=== PATIENT | male | born 1960 | race Caucasian/White ===

== ENCOUNTER 2023-08-13 16:16 | Inpatient (IN) ==
[2023-08-13] MEDS: SODIUM CHLORIDE 0.9% 500 ML IV STA (16:47)
[2023-08-13] MEDS: ACETAMINOPHEN 325 MG TAB PO STA (16:48)
--- NOTE | 2023-08-13 17:06 | XRay Report ---
XR chest 1V not portable CLINICAL HISTORY: Tachycardia. COMPARISON STUDY: No previous studies for comparison. FINDINGS: Lung volumes are normal. Lungs are clear. There is no pneumothorax or pleural effusion. Car diac size is normal. Mediastinal contours are normal. There is no evidence for pulmonary edema. IMPRESSION: No acute cardiopulmonary findings. ACT 112: Negative or not required by law. Electronically signed by: Josef Hernandez M.D. 08/13/2023 5:05 PM
[2023-08-13 17:38] LABS: Albumin Globulin Ratio 1.1 (0.9-2); Albumin Level 3.9 gm/dl (3.4-5.0); BUN Creatinine Ratio 13.7 (10-20); Bilirubin,Total 2.1 mg/dl (0.2-1.0); Creatinine Clr Calc Pharmacy 84.9 ml/min; Est GFR (African American) 72.3 ml/min; Est GFR (Non-African American) 62.4 ml/min; Globulin 3.7 gm/dl (2.5-4.0); Potassium 3.8 mmol/L (3.5-5.1); Total Protein 7.6 gm/dl (6.0-8.3)
[2023-08-13 17:44] LABS: Troponin I High Sensitivity 30.8 pg/ml (0-20)
[2023-08-13 17:54] LABS: INR 1.1 (0.9-1.1); Partial Thromboplastin Ratio 1.1; Partial Thromboplastin Time 29 Seconds (21-31); Prothrombin Time 11.6 Seconds (9.0-12.0)
[2023-08-13 17:55] LABS: Influenza A virus by PCR Negative (Neg); Influenza B virus by PCR Negative (Neg); RSV by PCR Negative (Neg); SARS CoV2 RNA(COVID-19) Ceph NEGATIVE (Negative)
--- NOTE | 2023-08-13 17:59 | Emergency Department Note ---
Impression & Plan Anaplasmosis, Lyme disease, Elevated troponin, Anemia, Lymphopenia, Thrombocytopenia, Elevated AST (SGOT) ED Provider Note NAME: MACK AMBROSE AGE: 63 SEX: M : 1960 ARRIVES VIA: Walk-In INFORMANT: Patient ED PROVIDER(S): Otto Carpio MD CHIEF COMPLAINT: Febrile illness, referred. PLAN: Disposition: Admit MEDICAL DECISION MAKING: The patient is a pleasant 63-year-old gentleman with a past medical history of hyperlipidemia, polyneuropathy who presents to the emergency department via walk-in accompanied by his , referred from his PCP office where he was seen for evaluation of febrile illness that has been fluctuating since Labor weekend in the setting of the patient having tick exposures approximate week or so prior to that as well as traveling to [facility] on a cruise with his and friends/family. They report that the patient is the only one on the trip to have gotten sick. He reports feeling persistently nauseated though does not vomit regularly. He reports this is affected his appetite which has been less. He denies diarrhea. He reports some mild upper respiratory congestion but is not atypical in the setting of his CPAP use. He reports a headache that comes and goes as does fevers chills and sweats. Patient reports he found ticks on his body a week or so before his trip to [facility] and had noticed a target-like rash several days later for which he took "a couple of amoxicillin" which she had but no more than this. On evaluation patient is uncomfortable but no distress, febrile to 38.9 with heart in the 100s and vital signs otherwise stable. Appears clinically dry. Has no focal neurologic deficits. Lungs are clear. Abdomen is benign. Neck is supple with range of motion. EKG without overt acute ischemia. CXR negative for acute cardiopulmonary process per my personal preliminary review/interpretation. WBC 5.2 within normal limits though with mild lymphopenia 0.73. H/H is 11.5/35.2 decreased from recent though approximate to prior range of values. Platelets are nearly low at 73 K. INR is 1.1, within normal limits. Chemistry without metabolic acidosis. Initial lactic acid 2.3 with repeat following IV fluid hydration improved to 1.2, within normal limits. Initial high-sensitivity troponin s mildly elevated at 30.8, nonspecific in the setting of the patient's suspected tickborne illness. LFTs are elevated from baseline with total bilirubin 2.1, AST 42. Procalcitonin is mildly elevated at 0.89. Anaplasma smear was positive consistent with suspected tickborne illness. Lyme screen resulted as equivocal though suspicion for Lyme and Anaplasma coinfection is high as the patient did report a target rash following his tick exposure. Repeat high-sensitivity troponin was slightly increased at 42 but again nonspecific. Upon evaluation patient did report some improvement though persistent on his headache despite treatment with APAP and Toradol. For completeness CT of the head was ordered. This was negative for acute abnormalities. Incidental subdural calcifications are seen. The patient does agree with plan for admission for further evaluation and treatment. Case was discussed with [place] Lovell hospitalist, who will evaluate the patient for admission. Triage Nursing notes reviewed and agree them. Prior/external medical records reviewed Vital Signs: reviewed Differential diagnosis: Viral syndrome, otitis, pharyngitis, pneumonia, influenza, meningitis, urinary tract infection, sepsis, bacteremia, as well as other pathologies. ER treatment provided: See below. Diagnostics interpreted by me: ECG: Sinus tachycardia, 117 bpm, no ectopy, no overt ST elevation or depression, QTc 432, QRS 74. Cardiac Monitoring: An order for continuous cardiac monitoring was placed and demonstrated Sinus tachycardia, 117 bpm, no ectopy. Laboratory studies: See below Imaging studies: See below Consultation(s): Case was discussed with KER[facility] Lovell hospitalist, who will evaluate the patient for admission. HPI: The patient is a pleasant 63-year-old gentleman with a past medical history of hyperlipidemia, polyneuropathy who presents to the emergency department via walk-in accompanied by his , referred from his PCP office where he was seen for evaluation of febrile illness that has been fluctuating since Labor weekend in the setting of the patient having tick exposures approximate week or so prior to that as well as traveling to [facility] on a cruise with his and friends/family. They report that the patient is the only one on the trip to have gotten sick. He reports feeling persistently nauseated though does not vomit regularly. He reports this is affected his appetite which has been less. He denies diarrhea. He reports some mild upper respiratory congestion but is not atypical in the setting of his CPAP use. He reports a headache that comes and goes as does fevers chills and sweats. Patient reports he found ticks on his body a week or so before his trip to [facility] and had noticed a target-like rash several days later for which he took "a couple of amoxicillin" which she had but no more than this. ROS: See above HPI for pertinent positives & negatives. A total of 10 systems reviewed and were otherwise negative. VITALS:See Below PHYSICAL EXAMINATION: GENERAL: Awake, alert, fatigued-appearing, in no distress HENT: Normocephalic, atraumatic. Oropharynx with dry mucous membranes and otherwise unremarkable. EYES: Normal conjunctiva. Sclera non-icteric. EOMI. No nystamgus. PEARRL. NECK: Supple. No nuchal rigidity. FROM. No JVD. RESPIRATORY: Clear to auscultation. CARDIAC: Tachycardic rate, normal rhythm. Extremities warm and well perfused. Pulses equal. ABDOMEN: Soft, non-distended. No tenderness to palpation. No rebound or guarding. No masses. MUSCULOSKELETAL: Chest examination reveals no tenderness. The back is symmetrical on inspection without obvious abnormality. There is no CVA tenderness to palpation. No joint edema. LOWER EXTREMITIES: Calves are equal size bilaterally and non-tender. No edema. No discoloration. NEURO: Normal sensorium. No sensory or motor deficits noted. Intact finger- nose. 5/5 strength and SILT x 4 extremities. SKIN: No rash or jaundice noted. Otto Carpio MD Past Med/Surg History Problem List (Updated 08/13/23 @ 23:01 by Otto Carpio MD) Elevated AST (SGOT) (Acute) Thrombocytopenia (Acute) Lymphopenia (Acute) Anemia (Acute) Elevated troponin (Acute) Elevated troponin Lyme disease (Acute) Anaplasmosis (Acute) Class 2 obesity due to excess calories with body mass index (BMI) of 37.0 to 37.9 in adult Severe obstructive sleep apnea Nocturnal hypoxemia Chondrocalcinosis of knee Tendinitis of both rotator cuffs Left knee DJD Allergic rhinitis (Acute) Anemia (Chronic) Degenerative arthritis of lumbar spine (Acute) Depression (Acute) Hyperlipidemia (Chronic) Prediabetes (Acute) Periodic limb movement disorder (Chronic) Polyneuropathy (Acute) Sacral radiculopathy (Acute) Tubular adenoma of colon (Acute) Medical History Class 2 obesity with body mass index (BMI) of 36.0 to 36.9 in adult Severe obstructive sleep apnea Chondrocalcinosis of knee Left knee DJD Surgical History S/P tonsillectomy H/O: knee surgery S/P UPPP (uvulopalatopharyngoplasty) Family History Mother Myocardial infarction Grandfather (Maternal) Myocardial infarction Other Cirrhosis Coronary heart disease Depression Diabetes Denies family history of Ovarian cancer Prostate cancer Breast cancer Colorectal cancer Social History Smoking Status: Never smoker Second Hand Exposure: No; Do You Dip or Chew Tobacco: No; Hx Alcohol Use: No Hx Substance Use: No Preferred Language: German Communication Ability: Effective Science Instructor Required: No marital status: Current Living Situation: Spouse current occupational status: retired current occupation: teacher Other Information That Helps Us Care for You: No Feels Safe at Home: Yes Safety Concerns: Feels Safe At This Time Diet: regular caffeine: Yes Dental Care, Regularly: Yes Physical Activity Frequency: 1-2 Times per Week Seatbelt Use: always Sunscreen Use: Yes Assistive Devices: None Allergies Allergies Allergy/AdvReac Type Severity Reaction Status Date / Time Latex, Natural Rubber AdvReac red, Verified 08/13/23 15:31 swollen lip Home Meds Home Medications Medication Instructions Recorded Confirmed ferrous sulfate 325 mg (65 mg 325 mg PO DAILY 10/08/18 08/13/23 iron) tablet Previous Rx's Medication Instructions Recorded meloxicam 15 mg tablet (Mobic) 15 mg PO DAILY #30 tabs 07/11/20 ropinirole 1 mg tablet See Rx Instructions .Route 08/16/22 .COMPLEX #270 tabs atorvastatin 20 mg tablet See Rx Instructions .Route 11/06/22 .COMPLEX #90 tabs citalopram 20 mg tablet 20 mg PO DAILY #90 tabs 05/08/23 tirzepatide (weight loss) 2.5 2.5 mg (0.5 mL) subcut Q7D 90 days 06/23/23 mg/0.5 mL subcutaneous pen #6.5 mL injector (Zepbound) tirzepatide (weight loss) 5 mg/0.5 5 mg (0.5 mL) subcut Q7D 90 days 08/01/23 mL subcutaneous pen injector #6.5 mL (Zepbound) Results & Data (ED) Vital Signs Vital Signs - 24 hr 08/13/23 16:20 08/13/23 17:34 08/13/23 17:49 Temperature 38.6 C H Temperature Source Oral Pulse Rate 123 H 104 H Pulse Rate [Left Finger] 110 H Pulse Rhythm [Left Finger] Regular Pulse Strength [Left Finger] Normal Respiratory Rate 16 20 Respiratory Effort / Characteristics Non-Labored Spontaneous Non-Labored Spontaneous Respiratory Depth Normal Normal Respiratory Pattern Regular Blood Pressure 130/79 Blood Pressure [Left Arm] 111/79 Blood Pressure Mean 96 Blood Pressure Mean [Left Arm] 89 Blood Pressure Position [Left Arm] Lying Pulse Oximetry 95 95 Oxygen Delivery Method Room Air Room Air Sepsis Recent Fever Within 48 Hours Yes Sepsis New/Unexplained Change in Mental Status No Sepsis Action Taken by Nursing No Action Required 08/13/23 18:33 Temperature 36.9 C Temperature Source Oral Pulse Rate Pulse Rate [Left Finger] Pulse Rhythm [Left Finger] Pulse Strength [Left Finger] Respiratory Rate Respiratory Effort / Characteristics Respiratory Depth Respiratory Pattern Blood Pressure Blood Pressure [Left Arm] Blood Pressure Mean Blood Pressure Mean [Left Arm] Blood Pressure Position [Left Arm] Pulse Oximetry Oxygen Delivery Method Sepsis Recent Fever Within 48 Hours Sepsis New/Unexplained Change in Mental Status Sepsis Action Taken by Nursing Laboratory Data Attestation: I reviewed the patient's lab results. 08/13/23 16:32 08/13/23 16:32 Lab Results 08/13/23 08/13/23 08/13/23 Range/Units 16:30 16:32 16:32 WBC 5.24 (4.8-10.8) K/ul RBC 3.91 L (4.70-6.10) M/uL Hgb 11.5 L (14.0-18.0) g/dl Hct 35.2 L (42.0-52.0) % MCV 90.0 (80.0-100.0) fL MCH 29.4 (25.0-34.0) pg MCHC 32.7 (32.0-36.0) g/dL RDW Std Deviation 45.0 (36.4-46.3) fL RDW Coeff of Armando 13.7 (11.5-14.5) % Plt Count 73 L (130-400) K/uL MPV 10.2 (9.4-12.4) fL Neutrophils % (Manual) 60 % Lymphocytes % (Manual) 14 % Reactive Lymphs % (Man) 19 % Monocytes % (Manual) 7 % Neutrophils # (Manual) 3.14 (1.40-6.50) K/uL Total Absolute Neuts 3.14 (1.4-6.5) K/uL Lymphocytes # (Manual) 0.73 L (1.2-3.4) K/uL Reactive Lymphs # 1.00 K/uL Total Abs Lymphocytes 1.73 (1.2-3.4) K/uL Monocytes # (Manual) 0.37 (0.11-0.59) K/uL Dohle Bodies 1+ Platelet Estimate Decreased L (Normal) PT 11.6 (9.0-12.0) Seconds INR 1.1 (0.9-1.1) APTT 29 (21-31) Seconds PTT Ratio 1.1 Sodium 135 L (136-145) mmol/L Potassium 3.8 (3.5-5.1) mmol/L Chloride 101 (98-107) mmol/L Carbon Dioxide 26 (21-32) mmol/L Anion Gap 8 (3-11) BUN 17 (6-23) mg/dl Creatinine 1.24 (0.6-1.4) mg/dl Est Cr Clr Drug Dosing 84.9 ml/min Est GFR ( Amer) 72.3 ml/min Est GFR (Non-Af Amer) 62.4 ml/min BUN/Creatinine Ratio 13.7 (10-20) Glucose 200 H (70-99(Fasting)) mg/dl Lactate 2.3 H* (0.4-2.0) mmol/L Calcium 9.0 (8.6-10.3) mg/dl Total Bilirubin 2.1 H (0.2-1.0) mg/dl AST 42 H (13-39) U/L ALT 30 (7-52) U/L Alkaline Phosphatase 137 H (34-104) U/L Troponin I High Sens 30.8 H (0-20) pg/ml Total Protein 7.6 (6.0-8.3) gm/dl Albumin 3.9 (3.4-5.0) gm/dl Globulin 3.7 (2.5-4.0) gm/dl Albumin/Globulin Ratio 1.1 (0.9-2) Procalcitonin 0.89 H (0-0.5) ng/ml Anaplasma Smear See Comment A Babesia Smear See Comment Lyme Disease Screen Cancelled Equivocal H Lyme Disease IgG Ab Positive H (Negative) Lyme Disease IgM Ab Negative (Negative) SARS-CoV-2 (PCR) NEGATIVE (Negative) Influenza Type A (PCR) Negative (Neg) Influenza Type B (PCR) Negative (Neg) RSV (RT-PCR) Negative (Neg) 08/13/23 08/13/23 Range/Units 18:25 18:25 WBC (4.8-10.8) K/ul RBC (4.70-6.10) M/uL Hgb (14.0-18.0) g/dl Hct (42.0-52.0) % MCV (80.0-100.0) fL MCH (25.0-34.0) pg MCHC (32.0-36.0) g/dL RDW Std Deviation (36.4-46.3) fL RDW Coeff of Armando (11.5-14.5) % Plt Count (130-400) K/uL MPV (9.4-12.4) fL Neutrophils % (Manual) % Lymphocytes % (Manual) % Reactive Lymphs % (Man) % Monocytes % (Manual) % Neutrophils # (Manual) (1.40-6.50) K/uL Total Absolute Neuts (1.4-6.5) K/uL Lymphocytes # (Manual) (1.2-3.4) K/uL Reactive Lymphs # K/uL Total Abs Lymphocytes (1.2-3.4) K/uL Monocytes # (Manual) (0.11-0.59) K/uL Dohle Bodies Platelet Estimate (Normal) PT (9.0-12.0) Seconds INR (0.9-1.1) APTT (21-31) Seconds PTT Ratio Sodium (136-145) mmol/L Potassium (3.5-5.1) mmol/L Chloride (98-107) mmol/L Carbon Dioxide (21-32) mmol/L Anion Gap (3-11) BUN (6-23) mg/dl Creatinine (0.6-1.4) mg/dl Est Cr Clr Drug Dosing ml/min Est GFR ( Amer) ml/min Est GFR (Non-Af Amer) ml/min BUN/Creatinine Ratio (10-20) Glucose (70-99(Fasting)) mg/dl Lactate Cancelled 1.2 (0.4-2.0) mmol/L Calcium (8.6-10.3) mg/dl Total Bilirubin (0.2-1.0) mg/dl AST (13-39) U/L ALT (7-52) U/L Alkaline Phosphatase (34-104) U/L Troponin I High Sens 42.1 H D (0-20) pg/ml Total Protein (6.0-8.3) gm/dl Albumin (3.4-5.0) gm/dl Globulin (2.5-4.0) gm/dl Albumin/Globulin Ratio (0.9-2) Procalcitonin (0-0.5) ng/ml Anaplasma Smear Babesia Smear Lyme Disease Screen Lyme Disease IgG Ab (Negative) Lyme Disease IgM Ab (Negative) SARS-CoV-2 (PCR) (Negative) Influenza Type A (PCR) (Neg) Influenza Type B (PCR) (Neg) RSV (RT-PCR) (Neg) Administered Medications Lactated Ringer's (Lr) 1,000 mls @ 125 mls/hr IV .Q8H RICK Stop: 08/14/23 12:14 Last Admin: 08/13/23 20:25 Dose: 125 mls/hr Documented By: TUAN Discontinued Medications Acetaminophen (Acetaminophen 325 Mg Tab) 650 mg PO NOW STA Stop: 08/13/23 16:30 Last Admin: 08/13/23 16:48 Dose: 650 mg Documented By: DANDY Acetaminophen (Acetaminophen 500 Mg Tab) 1,000 mg PO Q8H PRN PRN Reason: Pain or Fever Stop: 09/12/23 20:44 Last Admin: 08/13/23 20:56 Dose: 1,000 mg Documented By: TUAN Dexamethasone Sodium Phosphate (DexamethasonePf 10 Mg/Ml Vial) 10 mg IV NOW ONE Stop: 08/13/23 18:49 Last Admin: 08/13/23 19:09 Dose: 10 mg Documented By: JADIEL Doxycycline Hyclate (Doxycycline Hyclate 100 Mg Cap) 100 mg PO NOW STA Stop: 08/13/23 18:49 Last Admin: 08/13/23 19:09 Dose: 100 mg Documented By: JADIEL Sodium Chloride (Nss) 500 mls @ 999 mls/hr IV .Q31M STA Stop: 08/13/23 16:56 Last Infusion: 08/13/23 17:18 Dose: Infused Documented By: Admin: 08/13/23 16:47 Dose: 999 mls/hr Documented By: DANDY Sodium Chloride (Nss) 1,000 mls @ 999 mls/hr IV .Q1H1M ONE Stop: 08/13/23 18:39 Last Infusion: 08/13/23 20:17 Dose: Infused Documented By: Admin: 08/13/23 18:20 Dose: 999 mls/hr Documented By: JADIEL Ceftriaxone Sodium (Rocephin) 2,000 mg in 50 mls @ 100 mls/hr IV NOW STA Stop: 08/13/23 19:17 Last Infusion: 08/13/23 20:17 Dose: Infused Documented By: Admin: 08/13/23 19:09 Dose: 100 mls/hr Documented By: JADIEL Ketorolac Tromethamine (Ketorolac Tromethamine 15 Mg/Ml Vial) 15 mg IV NOW STA Stop: 08/13/23 18:21 Last Admin: 08/13/23 18:33 Dose: 15 mg Documented By: JADIEL Imaging Data Radiologist's Impression: Chest X-Ray 08/13/23 16:25 XR chest 1V not portable CLINICAL HISTORY: Tachycardia. COMPARISON STUDY: No previous studies for comparison. FINDINGS: Lung volumes are normal. Lungs are clear. There is no pneumothorax or pleural effusion. Cardiac size is normal. Mediastinal contours are normal. There is no evidence for pulmonary edema. IMPRESSION: No acute cardiopulmonary findings. ACT 112: Negative or not required by law. Electronically signed by: Josef Hernandez M.D. 08/13/2023 5:[address] 08/13/23 19:27 Exam(s): CT HEAD Without Contrast EXAM: CT Head Without Intravenous Contrast CLINICAL HISTORY: Reason for exam: Headache, anaplasma. TECHNIQUE: Axial computed tomography images of the head/brain without intravenous contrast. CTDI is 36.05 mGy and DLP is 624.41 mGy-cm. Automated exposure control was utilized for the study. A dose lowering technique was utilized adhering to the principles of ALARA. COMPARISON: None. FINDINGS: Brain: No mass effect or acute infarct. No acute hemorrhage. No abnormal density in the brain parenchyma. No significant atrophy or chronic white matter disease. Ventricles: No hydrocephalus or midline shift. Bones/joints: No skull fracture. Soft tissues: No scalp hematoma. Visualized Sinuses: Clear. Mastoid air cells: No mastoid effusion. IMPRESSION: 1. No acute intracranial abnormality. Electronically signed by: Shani Spann M.D. 08/13/23 20:26 PM Discharge Plan Visit Data Chief Complaint: Referred by Doctor Stated Complaint: TICK BORNE ILLNESS ED Provider: Otto Carpio Discharge Problem: Anaplasmosis, Lyme disease, Elevated troponin, Anemia, Lymphopenia, Thrombocytopenia, Elevated AST (SGOT) Patient Disposition: Admitted As Inpatient Discharge Instructions Interventions: ED Discharge Assessment Last Done: 08/13/23 22:25 Discharge Problem: Anemia Qualifiers: Anemia type: unspecified type Qualified Code(s): D64.9 - Anemia, unspecified
[2023-08-13 18:07] LABS: Procalcitonin 0.89 ng/ml (0-0.5)
[2023-08-13 18:11] LABS: ALC (manual) 1.73 K/uL (1.2-3.4); ANC (manual) 3.14 K/uL (1.4-6.5); Dohle Bodies 1+; Hematocrit (blood only) 35.2 % (42.0-52.0); Hemoglobin 11.5 g/dl (14.0-18.0); Lymphocytes # (manual) 0.73 K/uL (1.2-3.4); Lymphocytes % (manual) 14 %; Mean Corpuscular Hemoglobin 29.4 pg (25.0-34.0); Mean Corpuscular Hgb Conc 32.7 g/dL (32.0-36.0); Mean Platelet Volume 10.2 fL (9.4-12.4); Monocytes # (manual) 0.37 K/uL (0.11-0.59); Monocytes % (manual) 7 %; Neutrophils # (manual) 3.14 K/uL (1.40-6.50); Neutrophils % (manual) 60 %; Platelet Count 73 K/uL (130-400); Platelet Estimate Decreased (Normal); RDW Coefficient of Variation 13.7 % (11.5-14.5); Reactive Lymphocytes % (manual) 19 %; Red Blood Count 3.91 M/uL (4.70-6.10); White Blood Count 5.24 K/ul (4.8-10.8)
[2023-08-13] MEDS: SODIUM CHLORIDE 0.9% 1,000 ML IV ONE (18:20)
[2023-08-13 18:33] LABS: Lyme Screen Rflx Confirmation Equivocal (Negative)
[2023-08-13] MEDS: KETOROLAC TROMETHAMINE 15 MG/ML VIAL IV STA (18:33)
[2023-08-13 19:07] LABS: Lyme Ab IgG 2nd Tier Confirm Positive (Negative)
[2023-08-13 19:08] LABS: Lyme Ab IgM 2nd Tier Confirm Negative (Negative)
[2023-08-13] MEDS: dexAMETHasone**PF** 10 MG/ML VIAL IV ONE (19:09)
[2023-08-13] MEDS: DOXYCYCLINE HYCLATE 100 MG CAP PO STA (19:09)
[2023-08-13] MEDS: cefTRIAXone SODIUM 2,000 MG/50 ML BAG IV STA (19:09)
[2023-08-13] MEDS ORDERED: ONDANSETRON INJ 2 MG/ML 2 ML VIAL IV PRN (20:05)
[2023-08-13] MEDS: LACTATED RINGER'S 1,000 ML IV SCH (20:25)
--- NOTE | 2023-08-13 20:27 | CT Scan Report ---
Exam(s): CT HEAD Without Contrast EXAM: CT Head Without Intravenous Contrast CLINICAL HISTORY: Reason for exam: Headache, anaplasma. TECHNIQUE: Axial computed tomography images of the head/brain without intravenous contrast. CTDI is 36.05 mGy and DLP is 624.41 mGy-cm. Automated exposure control was utilized for the study. A dose lowering technique was utilized adhering to the principles of ALARA. COMPARISON: None. FINDINGS: Brain: No mass effect or acute infarct. No acute hemorrhage. No abnormal density in the brain parenchyma. No significant atrophy or chronic white matter disease. Ventricles: No hydrocephalus or midline shift. Bones/joints: No skull fracture. Soft tissues: No scalp hematoma. Visualized Sinuses: Clear. Mastoid air cells: No mastoid effusion. IMPRESSION: 1. No acute intracranial abnormality. Electronically signed by: Shani Spann M.D. 08/13/23 20:26 PM
--- NOTE | 2023-08-13 20:28 | History & Physical Report ---
Date of Service August 13, 2023 Assessment & Plan (1) Anaplasmosis: (2) Lyme disease: (3) Severe obstructive sleep apnea: (4) Anemia: (5) Depression: (6) Hyperlipidemia: (7) Prediabetes: (8) Elevated troponin: Plan 63 yo male PMHx DILCIA on CPAP, anemia, HLD, prediabetes, polyneuropathy, depression with history of tick exposure admitted with intermittent chills/nightsweats/headaches since . #Anaplasmosis/Lyme Labs consistent with anaplasmosis, lyme testing equivocal f/u remaining tick borne labs Treat with doxycycline 100mg BID for total of 10 days, first dose given in ER supportive care otherwise Avoid NSAIDs in setting of thrombocytopenia #Elevated Troponin Tachycardic on admission, suspect mild demand ischemia No chest pain or SOB Repeat trop ordered for am #Anemia Chronic, may be slightly worse in setting of anaplasmosis infection Continue iron supplementation #DILCIA on CPAP, severe CPAP qHS, pt will use home machine #HLD continue statin #Prediabetes Last A1c 6.4 tirzepatide held FENGI: heart healthy Code status: full DVT prophylaxis: encourage ambulation Isolation: none Disposition: med/tele History of Present Illness Primary Care Provider: Kirk Coles, DO 63 yo male PMHx DILCIA on CPAP, anemia, HLD, prediabetes, polyneuropathy, depression with history of tick exposure admitted with intermittent chills/nightsweats/headaches since . Approximately one week prior to pt discovered ticks on his body, one on lower R abdomen. Noticed a target-like rash and took amoxicillin that he had on hand. Has had intermittent chills, night sweats, and headache since that time. Also reports nausea that has limited his PO intake. Over the last week, these symptoms have been progressively worsening and he presented to the ED today. At the time of admission reports mild nausea, denies HORTON, CP, SOB, V/D, abdominal pain ED course: Febrile to 38.9, tachycardic Labs revealed anemia, thrombocytopenia, Troponin of 30.8(42.1 on repeat), Lactate 2.1(1.2 on repeat, Tbili 2.1, AST 42, Alk [id number] Lyme screen equivocal, peripheral smear + for neutrophil cytoplasmic inclusion bodies Received 1.5L NSS, Toradol, Tylenol, Dexamethasone, CTX, and Doxy Allergies Allergy/AdvReac Type Severity Reaction Status Date / Time Latex, Natural Rubber AdvReac red, Verified 08/13/23 15:31 swollen lip Home Medications Medication Instructions Recorded Confirmed Type ferrous sulfate 325 mg (65 mg 325 mg PO DAILY 10/08/18 08/13/23 History iron) tablet meloxicam 15 mg tablet (Mobic) 15 mg PO DAILY #30 tabs 07/11/20 08/13/23 Rx ropinirole 1 mg tablet See Rx Instructions .Route 08/16/22 08/13/23 Rx .COMPLEX #270 tabs atorvastatin 20 mg tablet See Rx Instructions .Route 11/06/22 08/13/23 Rx .COMPLEX #90 tabs citalopram 20 mg tablet 20 mg PO DAILY #90 tabs 05/08/23 08/13/23 Rx tirzepatide (weight loss) 2.5 2.5 mg (0.5 mL) subcut Q7D 90 days 06/23/23 08/13/23 Rx mg/0.5 mL subcutaneous pen #6.5 mL injector (Zepbound) tirzepatide (weight loss) 5 mg/0.5 5 mg (0.5 mL) subcut Q7D 90 days 08/01/23 08/13/23 Rx mL subcutaneous pen injector #6.5 mL (Zepbound) Past Med/Surg History Problem List (Updated 08/13/23 @ 23:01 by Otto Carpio MD) Elevated AST (SGOT) (Acute) Thrombocytopenia (Acute) Lymphopenia (Acute) Anemia (Acute) Elevated troponin (Acute) Elevated troponin Lyme disease (Acute) Anaplasmosis (Acute) Class 2 obesity due to excess calories with body mass index (BMI) of 37.0 to 37.9 in adult Severe obstructive sleep apnea Nocturnal hypoxemia Chondrocalcinosis of knee Tendinitis of both rotator cuffs Left knee DJD Allergic rhinitis (Acute) Anemia (Chronic) Degenerative arthritis of lumbar spine (Acute) Depression (Acute) Hyperlipidemia (Chronic) Prediabetes (Acute) Periodic limb movement disorder (Chronic) Polyneuropathy (Acute) Sacral radiculopathy (Acute) Tubular adenoma of colon (Acute) Medical History Class 2 obesity with body mass index (BMI) of 36.0 to 36.9 in adult Severe obstructive sleep apnea Chondrocalcinosis of knee Left knee DJD Surgical History S/P tonsillectomy H/O: knee surgery S/P UPPP (uvulopalatopharyngoplasty) Family History Mother Myocardial infarction Grandfather (Maternal) Myocardial infarction Other Cirrhosis Coronary heart disease Depression Diabetes Denies family history of Ovarian cancer Prostate cancer Breast cancer Colorectal cancer Social History Smoking Status: Never smoker Second Hand Exposure: No; Do You Dip or Chew Tobacco: No; Hx Alcohol Use: No Hx Substance Use: No Preferred Language: Latvian Communication Ability: Effective Pin Puller Required: No marital status: Current Living Situation: Spouse current occupational status: retired current occupation: teacher Other Information That Helps Us Care for You: No Feels Safe at Home: Yes Safety Concerns: Feels Safe At This Time Diet: regular caffeine: Yes Dental Care, Regularly: Yes Physical Activity Frequency: 1-2 Times per Week Seatbelt Use: always Sunscreen Use: Yes Assistive Devices: CPAP Review of Systems Review of Systems: reviewed, per HPI Physical Exam Physical Exam: Constitutional: [well-appearing, no acute distress] HEENT: [NCAT, no conjunctival injection] CV: [regular rhythm, no murmur appreciated, extremities well-perfused, no LE edema] Resp: [CTABL, no wheezes/rales/rhonchi appreciated, no increased work of breathing] GI: [soft, nondistended, nontender, BS normoactive] MSK: [no gross deformities appreciated] Skin: [warm, dry, no rash appreciated] Neuro: [alert, oriented, no focal neurologic deficit appreciated] Results & Data Results & Data Vital Signs (Past 12 Hours) Vital Signs Temp Pulse Pulse Resp BP BP Pulse Ox 08/13/23 18:33 36.9 C 08/13/23 17:49 104 H 08/13/23 17:34 110 H 20 111/79 95 08/13/23 16:20 38.6 C H 123 H 16 130/79 95 O2 Del Method 08/13/23 18:33 08/13/23 17:49 08/13/23 17:34 Room Air 08/13/23 16:20 Room Air Supervising Physician Co-Signing Physician Notes Attending addendum: I have physically seen this patient, have supervised the medical residents activities, and agree with the H&P unless as otherwise noted. Assessment and Plan: Tickborne illnesses- Anaplasmosis smear positive Babesiosis smear negative Lyme IgG positive with IgM negative Received ceftriaxone 2 g IV and doxycycline 100 mg IV from the ED along with dexamethasone 10 mg IV Status post 1500 mL of normal saline bolus from the ED, with no further IV fluids needed Admit on doxycycline 100 mg IV twice daily AST mildly elevated at 42 Thrombocytopenia, with platelets at 73, follow serially Elevated troponin- Troponin initially 30.8 with follow-up 42.1. Still likely supply/demand mismatch The patient will be admitted to telemetry for serial cardiac enzymes, serial EKG's, cardiac rhythm monitoring and a 2-D echocardiogram with Dopplers. Avoid any further NSAIDs, as patient did receive Toradol 15 mg IV Hyperglycemia/history of prediabetes- Most recent hemoglobin A1c 6.4 Hold tirzepatide 5 Placed on Accu-Cheks with NovoLog SSI Remaining orders and notations as noted Resident Activity Tracking Resident Involvement: Resident Care Provided Care Provided: Adult Hospital Medicine
[2023-08-13] MEDS: ACETAMINOPHEN 500 MG TAB PO PRN (20:56)
[2023-08-13] MEDS ORDERED: POLYETHYLENE (MIRALAX) 17 GM PACK PO PRN (22:26)
[2023-08-13] MEDS ORDERED: ALUMINUM/MAGNESIUM SUSP 30 ML UDC PO PRN (22:26)
[2023-08-13] MEDS ORDERED: MAGNESIUM HYDROXIDE SUSP 30 ML UDC PO PRN (22:26)
[2023-08-13] MEDS: ATORVASTATIN 20 MG TAB PO SCH (23:51)
[2023-08-13] MEDS: rOPINIRole HCL 2 MG TABLET PO ONE (23:51)
[2023-08-14 04:21] LABS: Hematocrit (blood only) 30.1 % (42.0-52.0); Mean Corpuscular Hemoglobin 29.9 pg (25.0-34.0); Mean Corpuscular Hgb Conc 33.2 g/dL (32.0-36.0); Mean Corpuscular Volume 89.9 fL (80.0-100.0); Mean Platelet Volume 10.1 fL (9.4-12.4); Platelet Count 65 K/uL (130-400); RDW Coefficient of Variation 13.7 % (11.5-14.5); RDW Standard Deviation 45.2 fL (36.4-46.3); Red Blood Count 3.35 M/uL (4.70-6.10); White Blood Count 6.06 K/ul (4.8-10.8)
[2023-08-14 04:32] LABS: Albumin Level 3.4 gm/dl (3.4-5.0); BUN Creatinine Ratio 14.4 (10-20); Bilirubin,Total 1.2 mg/dl (0.2-1.0); Calcium 8.6 mg/dl (8.6-10.3); Creatinine Clr Calc Pharmacy 94.8 ml/min; Est GFR (African American) 82.6 ml/min; Est GFR (Non-African American) 71.3 ml/min; Globulin 3.3 gm/dl (2.5-4.0); Potassium 4.3 mmol/L (3.5-5.1); Total Protein 6.7 gm/dl (6.0-8.3)
[2023-08-14 04:52] LABS: Dohle Bodies 1+
[2023-08-14 04:55] LABS: Appearance Urine Clear (Clear); Bilirubin Urine Negative (Negative); Blood Urine Negative (Negative); Color Urine Yellow; Glucose Urine UA Trace (Negative); Ketones Urine Negative (Negative); Leukocyte Esterase Urine Negative (Negative); Nitrite Urine Negative (Negative); Protein Urine Negative (Negative); Specific Gravity Urine 1.009 (1.000-1.030); Urobilinogen Urine Negative (Negative)
[2023-08-14 04:55] LABS: Basophils # (manual) 0.06 K/uL (0-0.2); Basophils % (manual) 1 %; Lymphocytes # (manual) 0.91 K/uL (1.2-3.4); Lymphocytes % (manual) 15 %; Monocytes # (manual) 0.12 K/uL (0.11-0.59); Monocytes % (manual) 2 %; Neutrophils # (manual) 4.18 K/uL (1.40-6.50); Neutrophils % (manual) 69 %; Reactive Lymphocytes # (manual) 0.79 K/uL; Reactive Lymphocytes % (manual) 13 %
[2023-08-14 05:08] LABS: Troponin I High Sensitivity 19.5 pg/ml (0-20)
[2023-08-14] MEDS: FERROUS SULFATE 325 MG TAB PO SCH (09:15)
[2023-08-14] MEDS: CITALOPRAM 20 MG TAB PO SCH (09:15)
[2023-08-14] MEDS: DOXYCYCLINE HYCLATE 100 MG in DEXTROSE 5% MINI-B 100 ML IV SCH (09:16)
[2023-08-14 09:30] LABS: INR 1.1 (0.9-1.1); Prothrombin Time 11.7 Seconds (9.0-12.0)
--- NOTE | 2023-08-14 11:21 | Hospitalist Progress Note ---
Date of Service August 14, 2023 Assessment & Plan (1) Anaplasmosis: Plan: Patient reported to have noticed tick on lower right abdomen in the 3rd week of July. Upon removal, he noted target like rash and took amoxicillin x 2 doses. Since then, he has experienced night sweats, nausea, chills, fevers, and headaches. -anaplasma smear positive 08/13/2023 -Awaiting A phagocytophilum DNA -patient placed on doxycycline 100mg twice daily x 10 days -IVF of LR completed 08/13. Patient tolerating oral intake and appetite resumed. -Tylenol 650mg q 4H prn for fevers and pain -Ondansetron 4mg IV Q4H prn for nausea -Reviewed inflammatory markers from 08/13: CRP 12.26, ESR 53, procalcitonin increased from 0.89 to 4.48. -will continue to trend -reviewed CMP from 08/13 - total bili elevation at 1.2. Alk phos elevation at 121. These are likely acutely elevated due to infection. Will continue to montior with CMP in the AM. -Reviewed Head CT and CXR from 08/12 -both negative. -await blood culture results (2) Lyme disease: Plan: -Lyme disease screening equivocval with positive Lyme IgG and negative IgM. -patient on doxycycline -discussed tick education with patient. (3) Thrombocytopenia: Plan: Patient with acute onset thrombocytopenia. Typically platelet count ranges from 170-210k -Reviewed platelets from 08/12 which were decreased at 73k and 08/13 decreased to 65k -likely due to anaplasmosis infection -will plan to recheck CBC 08/14 -reviewed PT/INR which was stable at 11.7/1.1 on 08/13. -Avoid NSAIDs (4) Anemia: Plan: Patient has history of anemia. Acute on chronic likely due to anaplasmosis vs IVF. Baseline hemoglobin in - range. -reviewed hemoglobin 08/13 which is 10. -Will continue to monitor with CBC in AM. If hemoglobin decreases further, will consider FOBT. -Patient denied any melena, hematochezia, hematuria. -continue on ferrous sulfate 325mg PO daily. (5) Elevated troponin: Plan: -Suspicious of mild demand ischemia -patient presented with elevated troponin on 08/12 of 42.1 -reviewed troponin 08/13 which has normalized at 19.5 -Patient denies chest pain or SOB -tachycardic on admission but has since resolved Plan Chronic conditions: DILCIA: continue home CPAP machine hyperlipidemia: continue statin prediabetes: A1c 64. tirzepatide held depression: continue citalopram periodic limb movement disorder: continue ropinirole Diet: heart healthy code status: full DVT prophylaxis: encourage ambulation isolation: none disposition: med/tele Admission and Anticipated Discharge Date Admission Date: August 13, 2023 Subjective Patient seen and examined this morning at bedside. Patient reports improvement of symptoms overnight. He has still been experiencing some sweating but denies any further nausea or headaches. He was febrile yesterday evening. He does report his appetite has improved and he ate his breakfast. He denies chest pain or shortness of breath. Patient did deny any melena, hematochezia or hematuria. Patient states stools are brown in color. Patient states he took 2 doses of amoxicillin after examining bullseye rash. He then went on his cruise trip. When he return, around the end of July is when his symptoms began to progress. Physical Exam Constitutional: WD/WN, vitals as above Eyes: PERRL, conjunctivae normal, anicteric sclerae ENMT: external ear and nose normal, oropharynx normal Respiratory: normal respiratory effort, lungs clear to auscultation Cardiovascular: RRR, no murmur, no edema Gastrointestinal (Abdomen): normal bowel sounds, soft, nontender, no hepatosplenomegaly Musculoskeletal: no cyanosis or clubbing, extremities motor strength 5/5 Neurologic: PERRL, EOMI, accommodation nl, no face palsy, no dysarthria Psychiatric: A+Ox3, euthymic affect Results & Data Results & Data Vital Signs (Past 12 Hours) Vital Signs Temp Pulse Pulse Pulse Resp BP Pulse Ox 08/14/23 07:34 36.3 C L 71 18 113/70 97 08/14/23 05:12 68 08/14/23 04:51 36.3 C L 70 18 134/77 99 08/14/23 04:40 69 17 125/87 96 08/14/23 02:00 63 18 95 08/14/23 01:32 70 08/14/23 00:35 08/14/23 00:35 76 18 120/69 96 Pulse Ox O2 Del Method O2 Del Method 08/14/23 07:34 Room Air 08/14/23 05:12 08/14/23 04:51 Room Air 08/14/23 04:40 Room Air 08/14/23 02:00 CPAP 08/14/23 01:32 08/14/23 00:35 96 Room Air 08/14/23 00:35 Room Air PG Care Time/CCT Total # of Minutes Spent Total Time Spent with Patient: Total time spent is greater than 50% in coordination of care (as documented) at patient's floor/unit and/or counseling patient: Coding Level of Care Code 14240 SUB INP/OBS CARE 3/50MIN Diagnoses Anaplasmosis A77.49 Lyme disease A69.20 Thrombocytopenia D69.6 Anemia D64.9 Anemia type: unspecified type Elevated troponin R79.89 (4) Anemia Anemia type: unspecified type Qualified Code(s): D64.9 - Anemia, unspecified
[2023-08-14 12:14] LABS: Anaplasmosis Smear(Rpt to DOH) Pos for Anaplasma
[2023-08-14] MEDS: ACETAMINOPHEN 325 MG TAB PO PRN (16:42)
--- NOTE | 2023-08-14 17:32 | Electrocardiogram Report ---
Test Reason : Blood Pressure : / mmHG Vent. Rate : 117 BPM Atrial Rate : 117 BPM P-R Int : 132 ms QRS Dur : 074 ms QT Int : 310 ms P-R-T Axes : 057 061 059 degrees QTc Int : 432 ms Sinus tachycardia Otherwise normal ECG When compared with ECG of 17-JUL-2001 16:28, Vent. rate has increased BY 47 BPM Nonspecific T wave abnormality has replaced inverted T waves in Inferior leads Confirmed by Jax Ontiveros ([id number]) on 08/14/2023 5:32:37 PM Referred By: Kirk Coles Confirmed By:Mono Ontiveros
[2023-08-14] MEDS: rOPINIRole HCL 1 MG TABLET PO SCH (21:02)
--- NOTE | 2023-08-15 06:11 | Billing Data ---
Date of Service August 15, 2023 Coding Level of Care Code 55391 INT INP/OBS CARE
[2023-08-15 07:05] LABS: Hematocrit (blood only) 27.7 % (42.0-52.0); Hemoglobin 8.9 g/dl (14.0-18.0); Mean Corpuscular Hemoglobin 29.4 pg (25.0-34.0); Mean Corpuscular Hgb Conc 32.1 g/dL (32.0-36.0); Mean Corpuscular Volume 91.4 fL (80.0-100.0); Mean Platelet Volume 10.1 fL (9.4-12.4); Platelet Count 74 K/uL (130-400); RDW Coefficient of Variation 13.9 % (11.5-14.5); RDW Standard Deviation 46.6 fL (36.4-46.3); Red Blood Count 3.03 M/uL (4.70-6.10); White Blood Count 6.86 K/ul (4.8-10.8)
[2023-08-15 07:23] LABS: Albumin Level 3.1 gm/dl (3.4-5.0); BUN Creatinine Ratio 13.9 (10-20); Bilirubin,Total 0.7 mg/dl (0.2-1.0); C Reactive Protein 6.51 mg/dl (0-0.5); Calcium 8.6 mg/dl (8.6-10.3); Creatinine Clr Calc Pharmacy 105.4 ml/min; Est GFR (African American) 92.6 ml/min; Est GFR (Non-African American) 79.9 ml/min; Total Protein 6.1 gm/dl (6.0-8.3)
[2023-08-15 10:35] LABS: Iron 140 mcg/dl (35-175); Total Iron Binding Cap Calc 209 mcg/dl (250-450); Transferrin (FE) Percent Satur 67 % (20-50); Unsaturated Iron Binding Cap 69 mcg/dl (155-355)
--- NOTE | 2023-08-15 11:03 | Discharge Summary ---
Date of Service August 15, 2023 Admission HPI Per Admitting Provider 63 yo male PMHx DILCIA on CPAP, anemia, HLD, prediabetes, polyneuropathy, depression with history of tick exposure admitted with intermittent chills/nightsweats/headaches since . Approximately one week prior to pt discovered ticks on his body, one on lower R abdomen. Noticed a target-like rash and took amoxicillin that he had on hand. Has had intermittent chills, night sweats, and headache since that time. Also reports nausea that has limited his PO intake. Over the last week, these symptoms have been progressively worsening and he presented to the ED today. At the time of admission reports mild nausea, denies HORTON, CP, SOB, V/D, abdominal pain ED course: Febrile to 38.9, tachycardic Labs revealed anemia, thrombocytopenia, Troponin of 30.8(42.1 on repeat), Lactate 2.1(1.2 on repeat, Tbili 2.1, AST 42, Alk [id number] Lyme screen equivocal, peripheral smear + for neutrophil cytoplasmic inclusion bodies Received 1.5L NSS, Toradol, Tylenol, Dexamethasone, CTX, and Doxy Principal Diagnosis Anaplamosis Discharge Exam Constitutional WD/WN, vitals as above Eyes PERRL, conjunctivae normal, anicteric sclerae ENMT external ear and nose normal, oropharynx normal Respiratory normal respiratory effort, lungs clear to auscultation Cardiovascular RRR, no murmur, no edema Gastrointestinal (Abdomen) normal bowel sounds, soft, nontender, no hepatosplenomegaly Musculoskeletal no cyanosis or clubbing, extremities motor strength 5/5 Neurologic PERRL, EOMI, accommodation nl, no face palsy, no dysarthria Psychiatric A+Ox3, euthymic affect Discharge Data Allergies Allergy/AdvReac Type Severity Reaction Status Date / Time Latex, Natural Rubber AdvReac red, Verified 08/13/23 15:31 swollen lip Consultations 08/13/23 19:31 ED Decision to Admit Stat Ordered Studies Chest X-Ray 08/13/23 16:25 XR chest 1V not portable CLINICAL HISTORY: Tachycardia. IMPRESSION: No acute cardiopulmonary findings. Electronically signed by: Josef Hernandez M.D. 08/13/2023 5:[address] 08/13/23 19:27 Exam(s): CT HEAD Without Contrast CLINICAL HISTORY: Reason for exam: Headache, anaplasma. IMPRESSION: 1. No acute intracranial abnormality. Electronically signed by: Shani Spann M.D. 08/13/23 20:26 PM 08/15/23 06:45 08/15/23 06:45 Vital Signs Temp 36.6 C 08/15/23 08:50 Pulse 82 08/15/23 08:50 Resp 18 08/15/23 08:50 BP 128/76 08/15/23 08:50 Pulse Ox 96 08/15/23 08:50 O2 Del Method Room Air 08/15/23 08:50 Hospital Course (1) Anaplasmosis: Patient reported to have noticed tick on lower right abdomen in the 3rd week of July. Upon removal, he noted target like rash and took amoxicillin x 2 doses. Since then, he has experienced night sweats, nausea, chills, fevers, and headaches upon presentation to ED On 08/12. He underwent a head CT and CXR on 08/12 that were both negative. Patient underwent tick panel in ED and was found to have a positive anaplasmosis along with equivocal lyme disease testing with positive IgG antibody. A phagocytophilum DNA is still pending. Patient was placed on doxycycline 100 mg twice daily and encouraged to finish antibiotics for full 10 day course. He was received 2 bags of LR during his hospital stay. Shortly after starting doxycycline, patients symptoms resolved. He did have blood cultures completed which were negative at 24 hours lulu. He was febrile when he presented but upon discharge temp was 36.6. He did have elevated inflammatory markers on 08/13 which included a CRP 12.26, ESR 53, and procalcitonin of 4.48. Recheck on 08/14 revealed CRp of 6.51 and procalcitonin of 3.29. He was found to have mild transaminitis which then normalized on 08/14 with a total bilirubin of 0.7 and normal ALT/AST. Transaminitis likely due to anaplasmosis. Patient noted to have thrombocytopenia and acute on chronic anemia as well, which is likely due to anaplasmosis. On day of discharge 08/14, patient was without symptoms and ready to report home. (2) Lyme disease: Patient had equivocal lyme disease screening with positive lyme IgG and negative IgM. He is being treated with doxycycline 100mg BID x 10 days. Tick education was discussed with the patient. (3) Thrombocytopenia: Patient with acute onset thrombocytopenia. Typically platelet count ranges from 170-210k and upon presentation was 73k. on 08/13 platelet count decreased to 65k but increased back to 74k on 08/14. This sudden decrease is likely due to anaplasmosis function. Patient will be obtaining CBC outpatient on 08/17 for follow up of numbers. His PT/INR was stable on 08/13 at 11.7/1.1 He was encouraged to avoid NSAIDs. Patient should avoid Mobic until seen by PCP as well. Patient can use Tylenol for pain/fevers as needed. (4) Anemia: Patient has history of anemia. Acute on chronic likely due to anaplasmosis vs IVF. Baseline hemoglobin in 02-12 range. Hemoglobin on 08/13 was 10 with drop to 8.9 on 08/14. Etiology likely anaplasmosis along with diluation. IVF stopped evening of 08/13. Patient denied chest pain, SOB, dizziness, or lightheadedness. He remained active by walking halls during his hospital stay. He also increased his oral fluid intake as well. He denied any melena, heamtochezia, or hematuria. He has also had EGD/Colonoscopy in June of 2022 that were without signs of GI bleeding. He reported his last BM was brown in color. He will obtain CBC on 08/18/2023 to reassess hgb. He will also continue on his ferrous sulfate 325mg PO daily outpatient. Prior to discharge iron studies were completed on 08/14 that revealed iron level of 140, TIBC 209, and transferrin % sat of 67. (5) Elevated troponin: On 08/12 patient was found to have troponin of 42.1. Recheck on 08/13 was WNL at 19.5. He denied chest pain or shortness of breath. This was likely due to mild demand ischemia. He was tachycardic on admission but this resolved on 08/13 and his HR was stable at discharge. Plan For his chronic conditions he continued on his home CPAP machine for DILCIA, his statin for HLD. We held his tirzepatide for prediabetes but this can be resumed upon discharge. He was continue on citalopram for depression and ropinirole for periodic limb movement disorder. His DVT prophylaxis was to encourage ambulation and he was on a heart healthy diet. Total Time Total Time Spent Total Time Spent (In Minutes): 40 Discharge Plan Discharge Items Patient Disposition: Home - Self-Care Reason For Visit: ELEVATED LFTS, ELEVATED TROP Discharge Diagnosis: Anaplasmosis, Lyme Disease Activity: Resume your previous activity Non-emergency contact: Primary Care Provider Call non-emergency contact if: you have any medication questions, your symptoms worsen and you have a fever Follow-up/Referrals: Kirk Coles, [Primary Care Provider] - Diet: Heart Healthy Ambulatory Orders: Complete Blood Count no Diff (Timed) Timeframe: [id number] Location: Determined by Patient Ordered By: Trice Dougherty Attending Provider Instructions: Mr. Massey, You were hospitalized due to fevers,chills, night sweats, nausea, and headaches that had been ongoing for several weeks. During your hospital stay you were found to be infected with tick borne illnesses including anaplasmosis and lyme disease. We started you on an antibiotic for these medications called doxycycline. Your hemoglobin and platelet count were found to be decreased as well. This is likely due to your tick borne illness and can be monitored as an outpatient. Please see recommendations below. -Please continue on Doxycycline 100mg twice daily with food for the next 9 days. Your next dose will be tonight 08/14. -Please obtain lab work on 08/18/2023 to recheck your hemoglobin and platelet counts. -Given a low platelet count, please avoid NSAIDs (ibuprofen, advil, aleve etc.). Please also avoid using your meloxicam until seen by your PCP. -If you have a fever/pain please use Tylenol 650mg every 4 hours as needed. For your chronic conditions: -Please continue on oral iron therapy for anemia. -Please continue to use CPAP machine for sleep apnea -Please continue on your statin for your high cholesterol -Please resume prediabetic medications -Please continue citalopram for depression -Please continue ropinirole for periodic limb movement disorder. Pending Studies at Discharge: No Stand-Alone Forms: My [employer], Smoking Cessation Medications and DC Order Prescriptions: New doxycycline hyclate 100 mg capsule 100 mg PO BID Qty: 18 0RF Continued ropinirole 1 mg tablet See Rx Instructions .ROUTE .COMPLEX Qty: 270 3RF Dose Instruction: TAKE 2 TO 3 TABLETS AT BEDTIME Rx Instructions: TAKE 2 TO 3 TABLETS AT BEDTIME atorvastatin 20 mg tablet See Rx Instructions .ROUTE .COMPLEX Qty: 90 3RF Dose Instruction: TAKE 1 TABLET AT BEDTIME Rx Instructions: TAKE 1 TABLET AT BEDTIME citalopram 20 mg tablet 20 mg PO DAILY Qty: 90 3RF Zepbound 2.5 mg/0.5 mL pen injector 2.5 mg subcut Q7D 90 Days Qty: 6.5 1RF Zepbound 5 mg/0.5 mL pen injector 5 mg subcut Q7D 90 Days Qty: 6.5 2RF ferrous sulfate 325 mg (65 mg iron) tablet 325 mg PO DAILY Held meloxicam [Mobic] 15 mg tablet 15 mg PO DAILY Qty: 30 3RF Hold Instructions: Resume on 08/29/23. Discharge Orders: Discharge Order (Routine); Ordered 08/15/23 Ordered By: Trice Velazquez Admission Data Admit Date/Time: 08/13/23 20:14 Attending Provider: Madi Mills Admit Provider: Julio Hurst Primary Care Provider: Kirk Coles Other Providers: José Luis Lang Other Interventions: Discharge Summary Assessment (RN) Last Done: 08/15/23 11:24 Supervising Physician Co-Signing Physician Notes During face to face encounter, I obtained a brief physical examination, discussed hospital stay with patient and discharge instructions with patient. I discussed discharge plan of care with JOANNE Velazquez. I reviewed above note and agree with it except for the following: Patient admitted with fever and generalized malaise. Found to have anaplasmosis. Patient states having a bull's eye lesion and self treated with amoxicillin. Patient understands that if he feels sick he will now go see a doctor. Patient is grateful on his improvement with his symptoms from doxycycline. Patient agreeable to discharge. Coding Level of Care Code 01809 INP/OBS DISCH >30 MIN Diagnoses Anaplasmosis A77.49 Lyme disease A69.20 Thrombocytopenia D69.6 Anemia D64.9 Anemia type: unspecified type Elevated troponin R79.89
== END 2023-08-15 12:24 | disposition home or self-care (01) | DRG 868 ==
LOC: ED 16:16 → SUATTDRO 20:14 → EDINP 20:14 → 2N 22:25

== ENCOUNTER 2024-02-21 00:34 | Observation (INO) ==
--- NOTE | 2024-02-21 00:59 | Emergency Department Note ---
Impression & Plan Back pain, Ureterolithiasis, Nausea & vomiting ED Provider Note ED Provider Note NAME: MACK AMBROSE AGE:64 SEX: Male : 1960 ARRIVES VIA: Private vehicle INFORMANT: Patient ED PROVIDER(s): Anupama Dunn DO CHIEF COMPLAINT: Back pain, nausea/vomiting HPI: This is a 64-year-old male presents emergency room due to concern for right-sided back pain with accompanying nausea and vomiting. Patient states pain was present all day however began to worsen around 6 PM this evening. He states it has been constant and otherwise nonradiating. No change with position. No recent trauma or change in activity. He states he does have a history of back pain and when his back pain flares up it is typically in this area. He did previously follow with Dr. Ro. He did see his chiropractor earlier today which typically makes the pain feel better however today did not help. No radiation of pain into the hip, buttock, or down the right lower extremity. No accompanying paresthesias. No recent change in urine or stools. He denies fevers, chills, abdominal pain. PAST MEDICAL HISTORY:See Below PAST SURGICAL HISTORY:See Below FAMILY HISTORY:See Below SOCIAL HISTORY:See Below HOME MEDICATIONS:See Below ALLERGIES:See Below VITALS:See Below PHYSICAL EXAMINATION: GENERAL: alert, uncomfortable appearing, well nourished, no distress, non-toxic EYE EXAM: normal conjunctiva, PERRL and EOM's grossly intact OROPHARYNX: no exudate, no erythema, lips, buccal mucosa, and tongue normal and mucous membranes are moist NECK: supple, no nuchal rigidity, no adenopathy, non-tender LUNGS: Clear to auscultation. Normal chest wall mechanics, no w/r/r HEART: no murmurs, S1 normal and S2 normal ABDOMEN: abdomen soft, non-tender, normo-active bowel sounds, no masses, no rebound or guarding. BACK: Back is symmetrical on inspection and there is no deformity, no midline tenderness, pain with palpation over the right lateral lumbar region SKIN: no rashes, petechiae, orbruising UPPER EXTREMITIES: upper extremities are grossly normal. FROM, nml pulses b/l. LOWER EXTREMITIES: No pitting edema. FROM, nml pulses b/l. NEURO EXAM: Normal sensorium, cranial nerves II-XII grossly intact, normal speech, no facial droop,nogross weakness of arms, no gross weakness of legs. Gross sensation intact. No ataxia. Vital Signs: reviewed and remarkable Differential Diagnosis: Musculoskeletal pain, occult trauma, ureterolithiasis, renal colic, UTI, pyelonephritis, acute disc herniation, discitis, epidural abscess or hematoma, AAA, dissection, colitis, appendicitis, as well as others were considered MEDICAL DECISION MAKING: This is a 64-year-old male presents to the emergency department with concern for right back/flank pain. Labs drawn and sent, IV established, patient monitored on telemetry. He was started on IV fluids and given IV Tylenol and IV Zofran for his symptoms. Patient sent for CT of the abdomen pelvis will CT lumbar spine given his history of back problems. Patient reported feeling improved. CT of the abdomen and pelvis showed a 1.5 cm stone at the proximal right ureter/UPJ with significant hydronephrosis. No evidence of RENE. Hematuria noted on UA, no evidence of UTI. Patient did have recurrent symptoms and was given Toradol and additional dose of Zofran, additional IV fluids added. Case discussed with urology who recommended admission to medicine and they will see the patient in consult. Case discussed with [facility] hospitalist team for additional evaluation and management. Consultation(s): 1623: Discussed with Heath Skinner PA-C with urology. Recommends admission to medicine and they will see in consult. He recommends patient be kept NPO. 1640: Discussed with Dr. Lang, [place] hospitalist team, for additional evaluation and mgmt. ER Treatment Provided: See below Diagnostics Interpreted By Me: -Cardiac Monitoring: An order was placed for continuous cardiac monitoring. The monitor shows a rate of 78 with normal sinus rhythm. -Laboratory studies: As stated above and show below. -Imaging studies: ct a/p - large right UPJ stone with hydro Triage Nursing Note Reviewed Prior/Outside Records Reviewed Past Med/Surg History Problem List (Updated 02/21/24 @ 06:16 by Anupama Dunn DO) Nausea & vomiting (Acute) Ureterolithiasis (Acute) Weight loss due to medication BPH loc w urin obs/LUTS Calculus of proximal right ureter Acute unilateral obstructive uropathy Nephrolithiasis Back pain (Acute) Elevated AST (SGOT) (Acute) Thrombocytopenia (Acute) Lymphopenia (Acute) Anemia (Acute) Elevated troponin (Acute) Elevated troponin Lyme disease (Acute) Anaplasmosis (Acute) Class 2 obesity due to excess calories with body mass index (BMI) of 37.0 to 37.9 in adult Severe obstructive sleep apnea Nocturnal hypoxemia Chondrocalcinosis of knee Tendinitis of both rotator cuffs Left knee DJD Allergic rhinitis (Acute) Anemia (Chronic) Degenerative arthritis of lumbar spine (Acute) Depression (Acute) Hyperlipidemia (Chronic) Prediabetes (Acute) Periodic limb movement disorder (Chronic) Polyneuropathy (Acute) Sacral radiculopathy (Acute) Tubular adenoma of colon (Acute) Medical History Class 2 obesity with body mass index (BMI) of 36.0 to 36.9 in adult Surgical History S/P tonsillectomy H/O: knee surgery S/P UPPP (uvulopalatopharyngoplasty) Family History Mother Myocardial infarction Grandfather (Maternal) Myocardial infarction Other Cirrhosis Coronary heart disease Depression Diabetes Denies family history of Ovarian cancer Prostate cancer Breast cancer Colorectal cancer Social History Smoking Status: Never smoker Second Hand Exposure: No; Do You Dip or Chew Tobacco: No; Hx Alcohol Use: No Hx Substance Use: No Preferred Language: Khmer Communication Ability: Effective Social Services Director Required: No marital status: Current Living Situation: Spouse current occupational status: retired current occupation: teacher Feels Safe at Home: Yes Diet: regular caffeine: Yes Dental Care, Regularly: Yes Physical Activity Frequency: 1-2 Times per Week Seatbelt Use: always Sunscreen Use: Yes Assistive Devices: CPAP Allergies Allergies Allergy/AdvReac Type Severity Reaction Status Date / Time Latex, Natural Rubber AdvReac red, Verified 02/19/24 09:44 swollen lip Home Meds Home Medications Medication Instructions Recorded Confirmed ferrous sulfate 325 mg (65 mg 325 mg PO DAILY 10/08/18 02/19/24 iron) tablet Previous Rx's Medication Instructions Recorded meloxicam 15 mg tablet (Mobic) 15 mg PO DAILY #30 tabs 07/11/20 citalopram 20 mg tablet 20 mg PO DAILY #90 tabs 05/08/23 tirzepatide (weight loss) 2.5 2.5 mg (0.5 mL) subcut Q7D 90 days 06/23/23 mg/0.5 mL subcutaneous pen #6.5 mL injector (Zepbound) ropinirole 1 mg tablet See Rx Instructions .Route 10/13/23 .COMPLEX #270 tabs atorvastatin 20 mg tablet See Rx Instructions .Route 12/01/23 .COMPLEX #90 tabs tirzepatide (weight loss) 5 mg/0.5 5 mg (0.5 mL) subcut Q7D 90 days 01/28/24 mL subcutaneous pen injector #6.5 mL (Zepbound) Results & Data (ED) Vital Signs Vital Signs - 24 hr 02/21/24 00:39 02/21/24 03:09 02/21/24 04:00 Temperature 36.6 C Temperature Source Temporal Artery Scan Pulse Rate 68 Pulse Rate [Apical] 59 L 60 Respiratory Rate 18 16 20 Respiratory Effort / Characteristics Non-Labored Spontaneous Non-Labored Spontaneous Respiratory Depth Normal Normal Normal Respiratory Pattern Regular Regular Blood Pressure 147/88 H Blood Pressure [Right Arm] 94/56 L 140/97 Blood Pressure Mean 107 Blood Pressure Mean [Right Arm] 68 111 Blood Pressure Position [Right Arm] Lying Lying Pulse Oximetry 99 98 Oxygen Delivery Method Room Air Room Air Sepsis Recent Fever Within 48 Hours No Sepsis New/Unexplained Change in Mental Status No Sepsis Action Taken by Nursing No Action Required 02/21/24 04:19 02/21/24 05:00 Temperature Temperature Source Pulse Rate 70 Pulse Rate [Apical] 70 Respiratory Rate 16 Respiratory Effort / Characteristics Non-Labored Spontaneous Respiratory Depth Normal Respiratory Pattern Regular Blood Pressure Blood Pressure [Right Arm] 141/84 H Blood Pressure Mean Blood Pressure Mean [Right Arm] 103 Blood Pressure Position [Right Arm] Lying Pulse Oximetry 95 Oxygen Delivery Method Room Air Sepsis Recent Fever Within 48 Hours Sepsis New/Unexplained Change in Mental Status Sepsis Action Taken by Nursing Laboratory Data 02/21/24 00:51 02/21/24 00:51 Lab Results 02/21/24 Range/Units 00:51 WBC 8.24 (4.8-10.8) K/ul RBC 4.25 L (4.70-6.10) M/uL Hgb 13.0 L (14.0-18.0) g/dl Hct 39.7 L (42.0-52.0) % MCV 93.4 (80.0-100.0) fL MCH 30.6 (25.0-34.0) pg MCHC 32.7 (32.0-36.0) g/dL RDW Std Deviation 44.5 (36.4-46.3) fL RDW Coeff of Armando 13.2 (11.5-14.5) % Plt Count 177 (130-400) K/uL MPV 9.0 L (9.4-12.4) fL Immature Gran % (Auto) 0.6 % Neut % (Auto) 48.3 % Lymph % (Auto) 37.9 % [place] % (Auto) 10.0 % Eos % (Auto) 2.8 % Baso % (Auto) 0.4 % Neut # (Auto) 3.99 (1.40-6.50) K/uL Lymph # (Auto) 3.12 (1.20-3.40) K/uL [place] # (Auto) 0.82 H (0.11-0.59) K/uL Eos # (Auto) 0.23 (0.00-0.50) K/uL Baso # (Auto) 0.03 (0.00-0.20) K/uL Immature Gran # (Auto) 0.05 (0.01-0.20) K/uL Sodium 139 (136-145) mmol/L Potassium 4.3 (3.5-5.1) mmol/L Chloride 101 (98-107) mmol/L Carbon Dioxide 33 H (21-32) mmol/L Anion Gap 5 (3-11) BUN 18 (6-23) mg/dl Creatinine 1.27 (0.6-1.4) mg/dl Est Cr Clr Drug Dosing 79.8 ml/min eGFR 63.88 BUN/Creatinine Ratio 14.2 (10-20) Glucose 101 H (70-99(Fasting)) mg/dl Calcium 9.9 (8.6-10.3) mg/dl Total Bilirubin 1.2 H (0.2-1.0) mg/dl AST 20 (13-39) U/L ALT 15 (7-52) U/L Alkaline Phosphatase 74 (34-104) U/L Total Protein 7.8 (6.0-8.3) gm/dl Albumin 4.8 (3.4-5.0) gm/dl Globulin 3.0 (2.5-4.0) gm/dl Albumin/Globulin Ratio 1.6 (0.9-2) Urine Color Yellow Urine Appearance Clear (Clear) Urine pH 5.5 (4.5-7.5) Ur Specific [place] 1.023 (1.000-1.030) Urine Protein 2+ H (Negative) Urine Glucose (UA) Negative (Negative) Urine Ketones Trace H (Negative) Urine Blood 3+ H (Negative) Urine Nitrite Negative (Negative) Urine Bilirubin Negative (Negative) Urine Urobilinogen Negative (Negative) Ur Leukocyte Esterase Trace H (Negative) Urine WBC (Auto) 11-20 H (0-5) /hpf Urine RBC (Auto) >20 H (0-2) /hpf U Hyaline Cast (Auto) 0-2 (0-2) /lpf U Epithel Cells (Auto) 0-2 (0-2) /hpf Urine Bacteria (Auto) None Seen (None Seen) Administered Medications Sodium Chloride (Nss) 1,000 mls @ 125 mls/hr IV .Q8H RICK Stop: 02/22/24 04:44 Last Admin: 02/21/24 04:56 Dose: 125 mls/hr Documented By: PAPI Discontinued Medications Acetaminophen (Ofirmev) 1,000 mg in 100 mls @ 400 mls/hr IV NOW STA Stop: 02/21/24 01:09 Last Infusion: 02/21/24 01:19 Dose: Infused Documented By: Admin: 02/21/24 01:03 Dose: 400 mls/hr Documented By: PAPI Sodium Chloride (Nss) 1,000 mls @ 999 mls/hr IV .Q1H1M ONE Stop: 02/21/24 01:55 Last Infusion: 02/21/24 02:05 Dose: Infused Documented By: Admin: 02/21/24 01:04 Dose: 999 mls/hr Documented By: PAPI Ketorolac Tromethamine (Ketorolac Tromethamine 15 Mg/Ml Vial) 10 mg IV NOW ONE Stop: 02/21/24 04:22 Last Admin: 02/21/24 04:24 Dose: 10 mg Documented By: PAPI Ondansetron HCl (Ondansetron Inj 2 Mg/Ml 2 Ml Vial) 4 mg IV NOW STA Stop: 02/21/24 00:56 Last Admin: 02/21/24 01:03 Dose: 4 mg Documented By: PAPI Ondansetron HCl (Ondansetron Inj 2 Mg/Ml 2 Ml Vial) 4 mg IV NOW STA Stop: 02/21/24 04:22 Last Admin: 02/21/24 04:24 Dose: 4 mg Documented By: PAPI Imaging Data Radiologist's Impression: Abdomen/Pelvis CT 02/21/24 01:18 HISTORY: Right flank pain and back pain. Nausea and vomiting. TECHNIQUE: CT of the abdomen pelvis without IV contrast. Images are presented in axial, sagittal, coronal reformats. COMPARISON: None. FINDINGS: Lung Bases/Inferior Mediastinum: Unremarkable Liver: Unremarkable Gallbladder: Unremarkable Spleen: Unremarkable Adrenals: Unremarkable Pancreas: Unremarkable Kidneys: Severe right hydronephrosis. 1.5 cm stone obstructs the right ureteropelvic junction. Left kidney is unremarkable. Stomach/Bowel: Normal appendix. No bowel obstruction. Lymph nodes: Unremarkable Vasculature: Mild atherosclerotic vascular disease. Tortuous abdominal aorta. No abdominal aortic aneurysm. Pelvis: Nonspecific circumferential bladder wall thickening. Prostatomegaly with the prostate measuring 5.7 cm in diameter. No free pelvic fluid. Soft Tissues: Tiny fat-containing umbilical hernia. Small fat-containing left inguinal hernia. Bones: Moderate degenerative changes of the spine. Mild degenerative changes of the hips and pelvis. Lumbar dextroscoliosis. Multilevel central canal and bilateral neural foraminal stenosis. IMPRESSION: 1. Acute right obstructive uropathy. Severe right hydronephrosis with a 1.5 cm stone obstructing the right ureteropelvic junction. 2. Prostatomegaly. Nonspecific circumferential bladder wall thickening may be the result of chronic bladder outlet obstruction. Recommend correlation with urinalysis. 3. Numerous additional chronic and/or incidental findings as above. Electronically signed by Leonard Quezada 02-21-2024 02:[address] 02/21/24 01:18 EXAM: CT lumbar spine wo con CLINICAL HISTORY: Right flank/back pain, nausea, vomiting. TECHNIQUE: A CT non-contrast scan of the lumbar spine was performed. Axial images were obtained with reformatted coronal and sagittal images and submitted for interpretation. One of the following dose reduction techniques was utilized for this exam: Automated exposure control, adjustment of the mA and/or kV according to patient size, and use of iterative reconstruction. COMPARISON: X-ray of lumbar spine, dated 04/28/2017 FINDINGS: Vertebrae: Lumbar spondylosis with marginal osteophytes. Normal alignment of the lumbar vertebrae. No fractures, lytic or sclerotic lesions. Normal bone density without evidence of osteopenia or osteoporosis. Straightening of lumbar lordosis suggestive of muscle spasm. Intervertebral Discs: Narrowing of intervertebral disc spaces. Multiple levels of intervertebral vacuum phenomena. Posterior disc osteophyte complexes seen at all levels with associated spinal canal and neural foraminal stenosis would recommend an MRI lumbar spine for further evaluation if clinically warranted. Spinal Canal and Neural Foramina: The spinal canal is of normal caliber with no evidence of spinal stenosis. Neural foramina are patent bilaterally at all levels. No evidence of nerve root compression. Facet Joints: Osteoarthritis of facet joints Soft Tissues: Normal appearance of the paraspinal soft tissues. No abnormal masses, fluid collections, or signs of inflammation. IMPRESSION: 1. Severe lumbar degenerative changes and multiple levels of posterior disc osteophyte complex causing spinal canal and neural foraminal stenosis would recommend MRI lumbar spine for further evaluation if clinically warranted. Interval progression. 2. Straightening of lumbar lordosis suggestive of muscle spasm. Electronically signed by Duke Nicholson 02-21-2024 06:06 AM Discharge Plan Visit Data Chief Complaint: Flank Pain Stated Complaint: LOWER BACK PAIN ED Provider: Anupama Dunn Discharge Problem: Back pain, Ureterolithiasis, Nausea & vomiting Patient Disposition: Admitted As Inpatient Discharge Instructions Interventions: ED Discharge Assessment Last Done: 02/21/24 05:35
[2024-02-21] MEDS: ONDANSETRON INJ 2 MG/ML 2 ML VIAL IV STA ×2 (01:03→04:24)
[2024-02-21] MEDS: ACETAMINOPHEN 1,000 MG/100 ML VIAL IV STA (01:03)
[2024-02-21] MEDS: SODIUM CHLORIDE 0.9% 1,000 ML IV ONE (01:04)
[2024-02-21 01:14] LABS: Appearance Urine Clear (Clear); Bacteria Urine Automated None Seen (None Seen); Bilirubin Urine Negative (Negative); Blood Urine 3+ (Negative); Cast Urine Automated 0-2 /lpf (0-2); Color Urine Yellow; Epithelial Cell Urine Auto 0-2 /hpf (0-2); Glucose Urine UA Negative (Negative); Ketones Urine Trace (Negative); Leukocyte Esterase Urine Trace (Negative); Nitrite Urine Negative (Negative); Protein Urine 2+ (Negative); RBC Urine Automated >20 /hpf (0-2); Specific Gravity Urine 1.023 (1.000-1.030); Urobilinogen Urine Negative (Negative); pH Urine 5.5 (4.5-7.5)
[2024-02-21 01:17] LABS: Basophils # (auto) 0.03 K/uL (0.00-0.20); Basophils % (auto) 0.4 %; Eosinophils # (auto) 0.23 K/uL (0.00-0.50); Eosinophils % (auto) 2.8 %; Hematocrit (blood only) 39.7 % (42.0-52.0); Immature Granulocytes # (auto) 0.05 K/uL (0.01-0.20); Immature Granulocytes % (auto) 0.6 %; Lymphocytes # (auto) 3.12 K/uL (1.20-3.40); Lymphocytes % (auto) 37.9 %; Mean Corpuscular Hemoglobin 30.6 pg (25.0-34.0); Mean Corpuscular Hgb Conc 32.7 g/dL (32.0-36.0); Mean Corpuscular Volume 93.4 fL (80.0-100.0); Monocytes # (auto) 0.82 K/uL (0.11-0.59); Neutrophils # (auto) 3.99 K/uL (1.40-6.50); Neutrophils % (auto) 48.3 %; Platelet Count 177 K/uL (130-400); RDW Coefficient of Variation 13.2 % (11.5-14.5); RDW Standard Deviation 44.5 fL (36.4-46.3); Red Blood Count 4.25 M/uL (4.70-6.10); White Blood Count 8.24 K/ul (4.8-10.8)
[2024-02-21 01:31] LABS: Albumin Globulin Ratio 1.6 (0.9-2); Albumin Level 4.8 gm/dl (3.4-5.0); BUN Creatinine Ratio 14.2 (10-20); Bilirubin,Total 1.2 mg/dl (0.2-1.0); Calcium 9.9 mg/dl (8.6-10.3); Creatinine Clr Calc Pharmacy 79.8 ml/min; Potassium 4.3 mmol/L (3.5-5.1); Total Protein 7.8 gm/dl (6.0-8.3)
--- NOTE | 2024-02-21 02:27 | CT Scan Report ---
HISTORY: Right flank pain and back pain. Nausea and vomiting. TECHNIQUE: CT of the abdomen pelvis without IV contrast. Images are presented in axial, sagittal, coronal reformats. COMPARISON: None. FINDINGS: Lung Bases/Inferior Mediastinum: Unremarkable Liver: Unremarkable Gallbladder: Unremarkable Spleen: Unremarkable Adrenals: Unremarkable Pancreas: Unremarkable Kidneys: Severe right hydronephrosis. 1.5 cm stone obstructs the right ureteropelvic junction. Left kidney is unremarkable. Stomach/Bowel: Normal appendix. No bowel obstruction. Lymph nodes: Unremarkable Vasculature: Mild atherosclerotic vascular disease. Tortuous abdominal aorta. No abdominal aortic aneurysm. Pelvis: Nonspecific circumferential bladder wall thickening. Prostatomegaly with the prostate measuring 5.7 cm in diameter. No free pelvic fluid. Soft Tissues: Tiny fat-containing umbilical hernia. Small fat-containing left inguinal hernia. Bones: Moderate degenerative changes of the spine. Mild degenerative changes of the hips and pelvis. Lumbar dextroscoliosis. Multilevel central canal and bilateral neural foraminal stenosis. IMPRESSION: 1. Acute right obstructive uropathy. Severe right hydronephrosis with a 1.5 cm stone obstructing the right ureteropelvic junction. 2. Prostatomegaly. Nonspecific circumferential bladder wall thickening may be the result of chronic bladder outlet obstruction. Recommend correlation with urinalysis. 3. Numerous additional chronic and/or incidental findings as above. Electronically signed by Leonard Quezada 02-21-2024 02:27 AM
--- NOTE | 2024-02-21 03:40 | Urology Consultation ---
Date of Consultation February 21, 2024 Assessment & Plan (1) Nephrolithiasis: The patient is being admitted on the hospitalist service. From a urologic perspective we recommend the following: Provide analgesics Provide antiemetics Consider initiating Flomax for expulsive therapy Would recommend keeping the patient n.p.o. antibiotics in the form of Rocephin have been initiated which may continue At the present time the patient is nontoxic-appearing. He is without tachycardia or fever and does not exhibit acute kidney injury and therefore we will treat conservatively at the present time Patient will be evaluated by Dr. Ruiz the morning of 02/21/2024 and a determination will be made if patient requires cystoscopic intervention Additional recommendations will be forthcoming based on his clinical course as unfolds Supervising Physician Co-Signing Physician Notes Agree with abovepatient seen and examined History of Present Illness Reason for Consultation: Nephrolithiasis History of Present Illness This is a 64-year-old male who presented to the emergency department secondary to right flank pain that began yesterday. He notes his pain in his upper right back with some radiation to the front of his abdomen. He has had associated nausea and vomiting. He denies any fevers, shakes, or chills. He denies any dysuria or hematuria. He has no prior history of kidney stones. Since arrival to the emergency department the patient has had labs and imaging which I independently reviewed. A CT scan of the abdomen pelvis showed the patient had severe right hydronephrosis with a 1.5 cm kidney stone at the right ureteropelvic junction. Labs included CBC were white blood cell count and platelet count were normal. Hemoglobin and hematocrit are 13.0 and 39.7. Chemistry profile showed sodium and potassium as well as the BUN and creatinine were normal. Urinalysis showed trace leukocyte Estrace and 11-20 white blood cells per high-power field. There is no bacteria or nitrites on this study. At the time of my arrival he was resting comfortably in bed he was in no dis tress. Allergies Allergy/AdvReac Type Severity Reaction Status Date / Time Latex, Natural Rubber AdvReac red, Verified 02/19/24 09:44 swollen lip Home Medications Medication Instructions Recorded Confirmed Type ferrous sulfate 325 mg (65 mg 325 mg PO DAILY 10/08/18 02/19/24 History iron) tablet meloxicam 15 mg tablet (Mobic) 15 mg PO DAILY #30 tabs 07/11/20 02/19/24 Rx citalopram 20 mg tablet 20 mg PO DAILY #90 tabs 05/08/23 02/19/24 Rx tirzepatide (weight loss) 2.5 2.5 mg (0.5 mL) subcut Q7D 90 days 06/23/23 02/19/24 Rx mg/0.5 mL subcutaneous pen #6.5 mL injector (Zepbound) ropinirole 1 mg tablet See Rx Instructions .Route 10/13/23 02/19/24 Rx .COMPLEX #270 tabs atorvastatin 20 mg tablet See Rx Instructions .Route 12/01/23 02/19/24 Rx .COMPLEX #90 tabs tirzepatide (weight loss) 5 mg/0.5 5 mg (0.5 mL) subcut Q7D 90 days 01/28/24 02/19/24 Rx mL subcutaneous pen injector #6.5 mL (Zepbound) Patient History Medical History Class 2 obesity with body mass index (BMI) of 36.0 to 36.9 in adult Surgical History S/P tonsillectomy H/O: knee surgery S/P UPPP (uvulopalatopharyngoplasty) Family History Mother Myocardial infarction Grandfather (Maternal) Myocardial infarction Other Cirrhosis Coronary heart disease Depression Diabetes Denies family history of Ovarian cancer Prostate cancer Breast cancer Colorectal cancer Social History Smoking Status: Never smoker Second Hand Exposure: No; Do You Dip or Chew Tobacco: No; Hx Alcohol Use: No Hx Substance Use: No Preferred Language: Italian Communication Ability: Effective Brake Lining Finisher Required: No Beliefs That Will Affect Care: None marital status: Current Living Situation: Spouse Current Living Situation Comment: lives with in 1 story home current occupational status: retired current occupation: teacher Other Information That Helps Us Care for You: No Feels Safe at Home: Yes Safety Concerns: Feels Safe At This Time Diet: regular caffeine: Yes Dental Care, Regularly: Yes Physical Activity Frequency: 1-2 Times per Week Seatbelt Use: always Sunscreen Use: Yes Assistive Devices: CPAP Review of Systems Review of Systems: All systems reviewed & are unremarkable except as noted in HPI & below Physical Exam Constitutional: WD/WN, vitals as above Eyes: no conjunctival abnormality ENMT: Ears: no hearing impairment and no external ear abnormality Mouth: no oropharynx abnormality Neck: trachea midline Respiratory: normal respiratory effort; no respiratory distress and no labored breathing Cardiovascular: Rate/Rhythm: regular rate and regular rhythm Gastrointestinal (Abdomen): Abdomen is soft and nondistended. There is no pain with palpation. There is no rebound tenderness or guarding Musculoskeletal: No calf tenderness Skin: no rashes Neurologic: moves all extremities Psychiatric: A+Ox3, euthymic affect Genitourinary: At the time of my exam there is minimal CVA tenderness with percussion bilaterally Results & Data Vital Signs (Past 12 Hours) Vital Signs Temp Pulse Pulse Resp BP BP Pulse Ox 02/21/24 03:09 59 L 16 94/56 L 02/21/24 00:39 36.6 C 68 18 147/88 H 99 O2 Del Method 02/21/24 03:09 02/21/24 00:39 Room Air PG Care Time/CCT Total # of Minutes Spent Total Time Spent with Patient: Total time spent is greater than 50% in coordination of care (as documented) at patient's floor/unit and/or counseling patient: Coding Level of Care Code 55003 IN/OBS CONSULT LVL 5,80M Diagnoses Nephrolithiasis N20.0
[2024-02-21] MEDS: KETOROLAC TROMETHAMINE 15 MG/ML VIAL IV ONE (04:24)
[2024-02-21] MEDS: SODIUM CHLORIDE 0.9% 1,000 ML IV SCH (04:56)
--- NOTE | 2024-02-21 05:12 | History & Physical Report ---
Date of Service February 21, 2024 Assessment & Plan (1) Acute unilateral obstructive uropathy: (2) Calculus of proximal right ureter: (3) BPH loc w urin obs/LUTS: (4) Severe obstructive sleep apnea: (5) Depression: (6) Weight loss due to medication: Plan: 1.5 cm right UPJ obstructing stone/severe right hydroureteronephrosis- NPO Follow urine culture sensitivity Empiric ceftriaxone 2 g IV daily Give tamsulosin 0.4 mg p.o. now and at bedtime Acetaminophen 1 g IV every 8 hours as needed for mild pain or fever Morphine sulfate 2 mg IV every 3 hours as needed for moderate pain Morphine sulfate 4 mg IV every 3 hours as needed for severe pain Zofran 4 mg IV every 6 hours as needed Phenergan 25 mg IV every 6 hours as needed for nausea and vomiting not relieved by Zofran Status post 1 L bolus normal saline from the ED Maintenance fluids NSS at 125 mL/h Follow serial CBC with differential, renal function panel and magnesium levels BPH with LUTS/bladder outlet obstruction/obstructive uropathy- Prostate 5.7 cm in size Placed on tamsulosin as noted above Consult urology for both issues Depression/restless legs-- Continue citalopram and ropinirole, to be resumed after procedure Weight loss management- On tirzepatide as an outpatient Hyperlipidemia- Resume atorvastatin postprocedure- History of Present Illness Chief Complaint: The patient presents to the emergency department with acute onset of right-sided back pain, with nausea and vomiting, that began early in the day, and worsened at around 6:00 this evening. Primary Care Provider: Kirk Coles DO The patient is a 64-year-old male with a past medical history including severe DILCIA, lumbar degenerative disc disease, depression, hyperlipidemia, prediabetes, PLMD, polyneuropathy, anaplasmosis, Lyme disease, and chronic back pain. He presents to the emergency department with right-sided back pain, that initially thought was related to his chronic pain, however, this rapidly worsened, accompanied by nausea and vomiting, and ultimately had to come to the ED for assessment. Allergies Allergy/AdvReac Type Severity Reaction Status Date / Time Latex, Natural Rubber AdvReac red, Verified 02/19/24 09:44 swollen lip Home Medications Medication Instructions Recorded Confirmed Type ferrous sulfate 325 mg (65 mg 325 mg PO DAILY 10/08/18 02/19/24 History iron) tablet meloxicam 15 mg tablet (Mobic) 15 mg PO DAILY #30 tabs 07/11/20 02/19/24 Rx citalopram 20 mg tablet 20 mg PO DAILY #90 tabs 05/08/23 02/19/24 Rx tirzepatide (weight loss) 2.5 2.5 mg (0.5 mL) subcut Q7D 90 days 06/23/23 Rx mg/0.5 mL subcutaneous pen #6.5 mL injector (Zepbound) ropinirole 1 mg tablet See Rx Instructions .Route 10/13/23 02/19/24 Rx .COMPLEX #270 tabs atorvastatin 20 mg tablet See Rx Instructions .Route 12/01/23 02/19/24 Rx .COMPLEX #90 tabs tirzepatide (weight loss) 5 mg/0.5 5 mg (0.5 mL) subcut Q7D 90 days 01/28/24 02/19/24 Rx mL subcutaneous pen injector #6.5 mL (Zepbound) Past Med/Surg History Problem List (Updated 02/21/24 @ 05:34 by José Luis Lang MD) Weight loss due to medication BPH loc w urin obs/LUTS Calculus of proximal right ureter Acute unilateral obstructive uropathy Nephrolithiasis Back pain (Acute) Elevated AST (SGOT) (Acute) Thrombocytopenia (Acute) Lymphopenia (Acute) Anemia (Acute) Elevated troponin (Acute) Elevated troponin Lyme disease (Acute) Anaplasmosis (Acute) Class 2 obesity due to excess calories with body mass index (BMI) of 37.0 to 37.9 in adult Severe obstructive sleep apnea Nocturnal hypoxemia Chondrocalcinosis of knee Tendinitis of both rotator cuffs Left knee DJD Allergic rhinitis (Acute) Anemia (Chronic) Degenerative arthritis of lumbar spine (Acute) Depression (Acute) Hyperlipidemia (Chronic) Prediabetes (Acute) Periodic limb movement disorder (Chronic) Polyneuropathy (Acute) Sacral radiculopathy (Acute) Tubular adenoma of colon (Acute) Medical History Class 2 obesity with body mass index (BMI) of 36.0 to 36.9 in adult Surgical History S/P tonsillectomy H/O: knee surgery S/P UPPP (uvulopalatopharyngoplasty) Family History Mother Myocardial infarction Grandfather (Maternal) Myocardial infarction Other Cirrhosis Coronary heart disease Depression Diabetes Denies family history of Ovarian cancer Prostate cancer Breast cancer Colorectal cancer Social History Smoking Status: Never smoker Second Hand Exposure: No; Do You Dip or Chew Tobacco: No; Hx Alcohol Use: No Hx Substance Use: No Preferred Language: [place] Communication Ability: Effective Housing Assistant Required: No marital status: Current Living Situation: Spouse current occupational status: retired current occupation: teacher Feels Safe at Home: Yes Diet: regular caffeine: Yes Dental Care, Regularly: Yes Physical Activity Frequency: 1-2 Times per Week Seatbelt Use: always Sunscreen Use: Yes Assistive Devices: CPAP Review of Systems Review of Systems: The patient denies chest pain, palpitations, shortness of breath, dyspnea on exertion, cough, lower extremity swelling, sore throat, fevers, chills, sweats, diarrhea , constipation, blood in urine or stool, dysuria, urinary frequency or urgency, lightheadedness, dizziness, headache, memory loss, loss of consciousness, rash, abnormal bruising or bleeding, imbalance, focal or generalized weakness, numbness or tingling in arms or legs, generalized arthralgias or myalgias, neck pain, or night sweats. The review of systems is otherwise negative other than for that already noted above, and at least 10 systems have been reviewed. Physical Exam Physical Exam: The patient is awake, alert and oriented 3, well developed and well nourished, normocephalic and atraumatic, lying in bed and in no acute distress. HEENT--PERRL, EOMI, mucous membranes and oropharynx mildly dry. Neck--supple. No JVD. No bruits. Thyroid normal, trachea midline, no adenopathy. Heart--normal S1 and S2. No murmurs, rubs or gallops. Lungs--clear bilaterally, no respiratory distress, no accessory muscle use. Abdomen--normal bowel sounds and soft. Nontender. Nondistended, no hernias or masses, no organomegaly. Extremities--no cyanosis or clubbing. No edema. There are good distal pulses b/l. Dermatologic--normal skin turgor, normal color, no abnormal lymph nodes, no rash. Neurologic--cranial nerves II through XII grossly intact. Rheumatologic--normal range of motion. Psychiatric--normal affect. Results & Data Results & Data Vital Signs (Past 12 Hours) Vital Signs Temp Pulse Pulse Resp BP BP Pulse Ox 02/21/24 04:19 70 02/21/24 04:00 60 20 140/97 98 02/21/24 03:09 59 L 16 94/56 L 02/21/24 00:39 36.6 C 68 18 147/88 H 99 O2 Del Method 02/21/24 04:19 02/21/24 04:00 Room Air 02/21/24 03:09 02/21/24 00:39 Room Air Laboratory Results Laboratory Results WBC 8.24 K/ul (4.8-10.8) 02/21/24 00:51 RBC 4.25 M/uL (4.70-6.10) L 02/21/24 00:51 Hgb 13.0 g/dl (14.0-18.0) L 02/21/24 00:51 Hct 39.7 % (42.0-52.0) L 02/21/24 00:51 MCV 93.4 fL (80.0-100.0) 02/21/24 00:51 MCH 30.6 pg (25.0-34.0) 02/21/24 00:51 MCHC 32.7 g/dL (32.0-36.0) 02/21/24 00:51 RDW Std Deviation 44.5 fL (36.4-46.3) 02/21/24 00:51 RDW Coeff of Armando 13.2 % (11.5-14.5) 02/21/24 00:51 Plt Count 177 K/uL (130-400) 02/21/24 00:51 MPV 9.0 fL (9.4-12.4) L 02/21/24 00:51 Immature Gran % (Auto) 0.6 % 02/21/24 00:51 Neut % (Auto) 48.3 % 02/21/24 00:51 Lymph % (Auto) 37.9 % 02/21/24 00:51 [place] % (Auto) 10.0 % 02/21/24 00:51 Eos % (Auto) 2.8 % 02/21/24 00:51 Baso % (Auto) 0.4 % 02/21/24 00:51 Neut # (Auto) 3.99 K/uL (1.40-6.50) 02/21/24 00:51 Lymph # (Auto) 3.12 K/uL (1.20-3.40) 02/21/24 00:51 [place] # (Auto) 0.82 K/uL (0.11-0.59) H 02/21/24 00:51 Eos # (Auto) 0.23 K/uL (0.00-0.50) 02/21/24 00:51 Baso # (Auto) 0.03 K/uL (0.00-0.20) 02/21/24 00:51 Immature Gran # (Auto) 0.05 K/uL (0.01-0.20) 02/21/24 00:51 Sodium 139 mmol/L (136-145) 02/21/24 00:51 Potassium 4.3 mmol/L (3.5-5.1) 02/21/24 00:51 Chloride 101 mmol/L (98-107) 02/21/24 00:51 Carbon Dioxide 33 mmol/L (21-32) H 02/21/24 00:51 Anion Gap 5 (3-11) 02/21/24 00:51 BUN 18 mg/dl (6-23) 02/21/24 00:51 Creatinine 1.27 mg/dl (0.6-1.4) 02/21/24 00:51 Est Cr Clr Drug Dosing 79.8 ml/min 02/21/24 00:51 eGFR 63.88 02/21/24 00:51 BUN/Creatinine Ratio 14.2 (10-20) 02/21/24 00:51 Glucose 101 mg/dl (70-99(Fasting)) H 02/21/24 00:51 Calcium 9.9 mg/dl (8.6-10.3) 02/21/24 00:51 Total Bilirubin 1.2 mg/dl (0.2-1.0) H 02/21/24 00:51 AST 20 U/L (13-39) 02/21/24 00:51 ALT 15 U/L (7-52) 02/21/24 00:51 Alkaline Phosphatase 74 U/L (34-104) 02/21/24 00:51 Total Protein 7.8 gm/dl (6.0-8.3) 02/21/24 00:51 Albumin 4.8 gm/dl (3.4-5.0) 02/21/24 00:51 Globulin 3.0 gm/dl (2.5-4.0) 02/21/24 00:51 Albumin/Globulin Ratio 1.6 (0.9-2) 02/21/24 00:51 Urine Color Yellow 02/21/24 00:51 Urine Appearance Clear (Clear) 02/21/24 00:51 Urine pH 5.5 (4.5-7.5) 02/21/24 00:51 Ur Specific [place] 1.023 (1.000-1.030) 02/21/24 00:51 Urine Protein 2+ (Negative) H 02/21/24 00:51 Urine Glucose (UA) Negative (Negative) 02/21/24 00:51 Urine Ketones Trace (Negative) H 02/21/24 00:51 Urine Blood 3+ (Negative) H 02/21/24 00:51 Urine Nitrite Negative (Negative) 02/21/24 00:51 Urine Bilirubin Negative (Negative) 02/21/24 00:51 Urine Urobilinogen Negative (Negative) 02/21/24 00:51 Ur Leukocyte Esterase Trace (Negative) H 02/21/24 00:51 Urine WBC (Auto) 11-20 /hpf (0-5) H 02/21/24 00:51 Urine RBC (Auto) >20 /hpf (0-2) H 02/21/24 00:51 U Hyaline Cast (Auto) 0-2 /lpf (0-2) 02/21/24 00:51 U Epithel Cells (Auto) 0-2 /hpf (0-2) 02/21/24 00:51 Urine Bacteria (Auto) None Seen (None Seen) 02/21/24 00:51 Impressions Abdomen/Pelvis CT 02/21/24 01:18 HISTORY: Right flank pain and back pain. Nausea and vomiting. TECHNIQUE: CT of the abdomen pelvis without IV contrast. Images are presented in axial, sagittal, coronal reformats. COMPARISON: None. FINDINGS: Lung Bases/Inferior Mediastinum: Unremarkable Liver: Unremarkable Gallbladder: Unremarkable Spleen: Unremarkable Adrenals: Unremarkable Pancreas: Unremarkable Kidneys: Severe right hydronephrosis. 1.5 cm stone obstructs the right ureteropelvic junction. Left kidney is unremarkable. Stomach/Bowel: Normal appendix. No bowel obstruction. Lymph nodes: Unremarkable Vasculature: Mild atherosclerotic vascular disease. Tortuous abdominal aorta. No abdominal aortic aneurysm. Pelvis: Nonspecific circumferential bladder wall thickening. Prostatomegaly with the prostate measuring 5.7 cm in diameter. No free pelvic fluid. Soft Tissues: Tiny fat-containing umbilical hernia. Small fat-containing left inguinal hernia. Bones: Moderate degenerative changes of the spine. Mild degenerative changes of the hips and pelvis. Lumbar dextroscoliosis. Multilevel central canal and bilateral neural foraminal stenosis. IMPRESSION: 1. Acute right obstructive uropathy. Severe right hydronephrosis with a 1.5 cm stone obstructing the right ureteropelvic junction. 2. Prostatomegaly. Nonspecific circumferential bladder wall thickening may be the result of chronic bladder outlet obstruction. Recommend correlation with urinalysis. 3. Numerous additional chronic and/or incidental findings as above. Electronically signed by Leonard Quezada 02-21-2024 02:27 AM - Code Status & VTE Plan Code Status Full code VTE Prophylaxis Plan VTE Prophylaxis will be ordered: Yes PG Care Time/CCT Total # of Minutes Spent Total Time Spent with Patient: Total time spent is greater than 50% in coordination of care (as documented) at patient's floor/unit and/or counseling patient: Coding Level of Care Code 95428 INT INP/OBS CARE 3/75MIN Diagnoses Acute unilateral obstructive uropathy N13.9 Calculus of proximal right ureter N20.1 BPH loc w urin obs/LUTS N40.1 Severe obstructive sleep apnea G47.33 Depression F32.9 Weight loss due to medication R63.4; T50.905A
[2024-02-21] MEDS ORDERED: MoRPHine SULFATE 2 MG/ML CARP IV PRN (06:03)
[2024-02-21] MEDS ORDERED: PROMETHAZINE 25 MG/51 ML BAG IV PRN (06:03)
[2024-02-21] MEDS ORDERED: MoRPHine SULFATE 4 MG/ML 1 ML CARP\\VIAL IV PRN (06:03)
--- NOTE | 2024-02-21 06:06 | CT Scan Report ---
EXAM: CT lumbar spine wo con CLINICAL HISTORY: Right flank/back pain, nausea, vomiting. TECHNIQUE: A CT non-contrast scan of the lumbar spine was performed. Axial images were obtained with reformatted coronal and sagittal images and submitted for interpretation. One of the following dose reduction techniques was utilized for this exam: Automated exposure control, adjustment of the mA and/or kV according to patient size, and use of iterative reconstruction. COMPARISON: X-ray of lumbar spine, dated 04/28/2017 FINDINGS: Vertebrae: Lumbar spondylosis with marginal osteophytes. Normal alignment of the lumbar vertebrae. No fractures, lytic or sclerotic lesions. Normal bone density without evidence of osteopenia or osteoporosis. Straightening of lumbar lordosis suggestive of muscle spasm. Intervertebral Discs: Narrowing of intervertebral disc spaces. Multiple levels of intervertebral vacuum phenomena. Posterior disc osteophyte complexes seen at all levels with associated spinal canal and neural foraminal stenosis would recommend an MRI lumbar spine for further evaluation if clinically warranted. Spinal Canal and Neural Foramina: The spinal canal is of normal caliber with no evidence of spinal stenosis. Neural foramina are patent bilaterally at all levels. No evidence of nerve root compression. Facet Joints: Osteoarthritis of facet joints Soft Tissues: Normal appearance of the paraspinal soft tissues. No abnormal masses, fluid collections, or signs of inflammation. IMPRESSION: 1. Severe lumbar degenerative changes and multiple levels of posterior disc osteophyte complex causing spinal canal and neural foraminal stenosis would recommend MRI lumbar spine for further evaluation if clinically warranted. Interval progression. 2. Straightening of lumbar lordosis suggestive of muscle spasm. Electronically signed by Duke Nicholson 02-21-2024 06:06 AM
--- NOTE | 2024-02-21 09:25 | History & Physical Bridge Note ---
Date of Service February 21, 2024 Please see consult above for details, however the patient has a large right UPJ stone and will undergo cystoscopy and right ureteral stent placement today. We will then plan for discharge home and outpatient follow-up for definitive treatment of his stone. History & Physical Bridge Note I have examined the patient, reviewed the History & Physical and in the interval since the performance of the History & Physical I have noted the following changes of clinical significance: no changes noted
[2024-02-21] MEDS: ACETAMINOPHEN 1,000 MG/100 ML VIAL IV PRN (09:33)
[2024-02-21] MEDS: ONDANSETRON INJ 2 MG/ML 2 ML VIAL IV PRN (09:37)
[2024-02-21] MEDS: TAMSULOSIN HCL 0.4 MG CAP PO ONE (11:38)
[2024-02-21] MEDS: cefTRIAXone SODIUM 2,000 MG/50 ML BAG IV SCH (11:38)
--- NOTE | 2024-02-21 12:19 | Anesthesiology Consultation ---
Date of Service February 21, 2024 Assessment & Plan Chart Review Chart Review: Acceptable Risk for Surgery Consults Requested none History Surgery Operation Date: 02/21/24 10:30 Proposed Procedures p Cystoscopy - Jax Ruiz MD Height/Weight Height: 6 ft 1 in Weight: 115 kg Allergies Allergy/AdvReac Type Severity Reaction Status Date / Time Latex, Natural Rubber AdvReac red, Verified 02/19/24 09:44 swollen lip Medications Home Medications Medication Instructions Recorded Confirmed Last Taken ferrous sulfate 325 mg (65 mg 325 mg PO DAILY 10/08/18 02/19/24 Unknown iron) tablet meloxicam 15 mg tablet (Mobic) 15 mg PO DAILY #30 tabs 07/11/20 02/19/24 Unknown citalopram 20 mg tablet 20 mg PO DAILY #90 tabs 05/08/23 02/19/24 Unknown tirzepatide (weight loss) 2.5 2.5 mg (0.5 mL) subcut Q7D 90 days 06/23/23 02/19/24 Unknown mg/0.5 mL subcutaneous pen #6.5 mL injector (Zepbound) ropinirole 1 mg tablet See Rx Instructions .Route 10/13/23 02/19/24 Unknown .COMPLEX #270 tabs atorvastatin 20 mg tablet See Rx Instructions .Route 12/01/23 02/19/24 Unknown .COMPLEX #90 tabs tirzepatide (weight loss) 5 mg/0.5 5 mg (0.5 mL) subcut Q7D 90 days 01/28/24 02/19/24 Unknown mL subcutaneous pen injector #6.5 mL (Zepbound) Active Medications Generic Name Dose Route Start Last Admin Trade Name Freq PRN Reason Stop Dose Admin Sodium Chloride 1,000 mls @ 125 mls/hr 02/21/24 04:45 02/21/24 04:56 Nss IV 02/22/24 04:44 125 mls/hr .Q8H RICK Administration Ceftriaxone Sodium 2,000 mg in 50 mls @ 100 mls/hr 02/21/24 06:00 02/21/24 12:09 Rocephin IV 02/28/24 05:59 Infused Q24H RICK Infusion Acetaminophen 1,000 mg in 100 mls @ 400 mls/hr 02/21/24 06:03 02/21/24 10:08 Ofirmev IV 02/24/24 06:02 Infused Q8H PRN Infusion Pain or Fever Ondansetron HCl 4 mg 02/21/24 06:03 02/21/24 09:37 Ondansetron Inj 2 Mg/Ml 2 Ml Vial IV 03/22/24 06:02 4 mg Q6H PRN Administration Nausea NPO Date Last Intake of Fluids: 02/20/24 Time Last Intake of Fluids: 22:00 Date Last Intake of Solids: 02/20/24 Time Last Intake of Solids: 20:00 Past Medical History Medical History Class 2 obesity with body mass index (BMI) of 36.0 to 36.9 in adult Past Family History Family History Mother Myocardial infarction Grandfather (Maternal) Myocardial infarction Other Cirrhosis Coronary heart disease Depression Diabetes Denies family history of Ovarian cancer Prostate cancer Breast cancer Colorectal cancer Past Surgical History Surgical History S/P tonsillectomy H/O: knee surgery S/P UPPP (uvulopalatopharyngoplasty) Social History Smoking Status: Never smoker Do You Dip or Chew Tobacco: No Hx Alcohol Use: No Hx Substance Use: No Physical Exam Vital Signs Last Vital Signs Temp 36.6 C 02/21/24 07:24 Pulse 60 02/21/24 07:24 Resp 18 02/21/24 07:24 BP 115/65 02/21/24 07:24 Pulse Ox 96 02/21/24 07:24 O2 Del Method Room Air 02/21/24 07:24 Testing Laboratory Results 02/21/24 00:51 02/21/24 00:51 Urine Color Yellow 02/21/24 00:51 Urine Appearance Clear (Clear) 02/21/24 00:51 Urine pH 5.5 (4.5-7.5) 02/21/24 00:51 Ur Specific [place] 1.023 (1.000-1.030) 02/21/24 00:51 Urine Protein 2+ (Negative) H 02/21/24 00:51 Urine Glucose (UA) Negative (Negative) 02/21/24 00:51 Urine Ketones Trace (Negative) H 02/21/24 00:51 Urine Nitrite Negative (Negative) 02/21/24 00:51 Ur Leukocyte Esterase Trace (Negative) H 02/21/24 00:51 Urine WBC (Auto) 11-20 /hpf (0-5) H 02/21/24 00:51 Urine RBC (Auto) >20 /hpf (0-2) H 02/21/24 00:51 U Hyaline Cast (Auto) 0-2 /lpf (0-2) 02/21/24 00:51 U Epithel Cells (Auto) 0-2 /hpf (0-2) 02/21/24 00:51 Urine Bacteria (Auto) None Seen (None Seen) 02/21/24 00:51
[2024-02-21] MEDS ORDERED: HYDROmorphone INJ 2 MG/ML SYR/VIAL IV PRN (12:22)
[2024-02-21] MEDS ORDERED: PROMETHAZINE HCL 6.25 MG in SODIUM CHLORIDE 0.9% 50 ML IV PRN (12:22)
[2024-02-21] MEDS ORDERED: fentaNYL citrate PF 100 MCG/2 ML VIAL IV PRN (12:22)
[2024-02-21] MEDS ORDERED: ePHEDrine sulfate 50 MG/ML AMP IV PRN (12:22)
[2024-02-21] MEDS ORDERED: ONDANSETRON INJ 2 MG/ML 2 ML VIAL IV PRN (12:22)
[2024-02-21] MEDS ORDERED: ATROPINE SULFATE 0.1 MG/ML 10ML SYR IV PRN (12:22)
[2024-02-21] MEDS ORDERED: fentaNYL citrate PF 100 MCG/2 ML VIAL ONE (12:23)
[2024-02-21] MEDS ORDERED: LIDOCAINE 2% 2 ML VIAL/AMP(20MG/ML) INFIL ONE (12:23)
[2024-02-21] MEDS ORDERED: PROPOFOL IV EMULSION 10 MG/ML 20 ML VIAL IV ONE (12:23)
[2024-02-21] MEDS ORDERED: MIDAZOLAM HCL 1 MG/ML 2ML VIAL ONE (12:23)
[2024-02-21] MEDS ORDERED: ONDANSETRON INJ 2 MG/ML 2 ML VIAL ONE (12:23)
[2024-02-21] MEDS ORDERED: ePHEDrine sulfate 50 MG/ML AMP ONE (12:46)
--- NOTE | 2024-02-21 13:01 | Operative Report ---
PG Post Operative Report Pre & Post Diagnosis Operation Date: 02/21/24 10:30 Pre-Op Diagnosis: (1) Acute unilateral obstructive uropathy (2) Calculus of proximal right ureter Post-Op Diagnosis: (1) Acute unilateral obstructive uropathy (2) Calculus of proximal right ureter I identified the patient and participated in the time-out.: Yes Procedure Operation Date: 02/21/24 10:30 Actual Procedures p Cystoscopy, Right ureteral stent placement(Right) - Jax Ruiz MD Surgeon Jax Ruiz MD Community Marketing Manager none Estimated Blood Loss 0 Findings Consistent with Post-Op Diagnosis Specimens none Description of Procedure The patient was identified in the preoperative holding area, appropriate informed consents were reviewed and completed and the patient was transferred to the operative suite. Upon arrival, appropriate antibiotics and anesthesia were administered and the patient was placed in dorsal lithotomy position and prepped and draped in sterile fashion. To be in the case I passed a 21 [place] cystoscope with 30 degree lens. Inspection revealed a healthy-appearing urethra, no strictures, and moderately enlarged prostate and a healthy appearing bladder. There were no abnormalities of bladder mucosa. The right and left ureteral orifices were in orthotopic position. I turned my attention to the right UO and cannulated with a sensor wire. This wire advanced the kidney. I could see an opacity in the location of the right UPJ. Initially the wire progressed to the upper pole, I then proceed ed to begin placement of a 6 [place] by 26 cm double-J stent. As the proximal aspect of the stent was being placed it flipped into the lower pole of the kidney but curled appropriately. There was good curl in the bladder as well. After confirming position of the stent I emptied the bladder and concluded the case. There were no complications or issues. The patient is in stable condition and should be able to be discharged home later today. He can follow-up as an outpatient for definitive treatment of his stone. I attest to the content of the Intraoperative Record and any orders documented therein. Any exceptions are noted below.
--- NOTE | 2024-02-21 13:35 | Anesthesiology Progress Note ---
Date of Service February 21, 2024 Anesthesia Post Procedure Vital Signs Vital Signs: Temp Pulse Pulse Pulse Resp BP BP 02/21/24 13:25 74 21 129/79 02/21/24 13:15 72 18 117/67 02/21/24 13:06 36 C L 71 19 140/70 02/21/24 07:24 36.6 C 60 18 115/65 02/21/24 06:03 36.7 C 63 18 142/89 H 02/21/24 05:35 63 18 112/58 L 02/21/24 05:00 70 16 141/84 H 02/21/24 04:19 70 02/21/24 04:00 60 20 140/97 02/21/24 03:09 59 L 16 94/56 L 02/21/24 00:39 36.6 C 68 18 147/88 H Pulse Ox O2 Del Method O2 Flow Rate 02/21/24 13:25 99 Room Air 02/21/24 13:15 100 Oxymask 4 02/21/24 13:06 99 Oxymask 8 02/21/24 07:24 96 Room Air 02/21/24 06:03 96 Room Air 02/21/24 05:35 95 Room Air 02/21/24 05:00 95 Room Air 02/21/24 04:19 02/21/24 04:00 98 Room Air 02/21/24 03:09 02/21/24 00:39 99 Room Air Pain Intensity Right Flank: Pain Intensity: 5 Transfer of Care Handoff Completed per policy Notes Mental Status: alert / awake / arousable and participated in evaluation Patient Amnestic to Procedure: Yes Nausea / Vomiting: adequately controlled Pain: adequately controlled Airway Patency, RR, SpO2: stable & adequate BP & HR: stable & adequate Hydration State: stable & adequate Anesthetic Complications: no major complications apparent
[2024-02-21 14:09] VITALS: TEMP 97.5
[2024-02-21 14:53] VITALS: BP 126/70; PULSE 61; RESP 18; O2SAT 100
--- NOTE | 2024-02-21 14:59 | Discharge Summary ---
Discharge Summary Date of Service February 21, 2024 Principal Dx & Hospital Course #1 = Principal Diagnosis (1) Acute unilateral obstructive uropathy: (2) Calculus of proximal right ureter: (3) BPH loc w urin obs/LUTS: (4) Severe obstructive sleep apnea: (5) Depression: (6) Weight loss due to medication: 1.5 cm right UPJ obstructing stone/severe right hydroureteronephrosis- Empiric ceftriaxone 2 g IV daily - discharged with PO cipro given severe hy dronephrosis Urology consulted - s/p stent placement with Dr. Ruiz 02/20 - continue flomax - outpatient follow up for stone treatment Voiding without difficulty and tolerating diet post procedure. Discharged with antibiotics, oxybutyin, tramadol, and flomax. BPH with LUTS/bladder outlet obstruction/obstructive uropathy- Prostate 5.7 cm in size Depression/restless legs-- Continue citalopram and ropinirole, Weight loss management- On tirzepatide as an outpatient Hyperlipidemia- continue atorvastatin postprocedure- Plan stable for d/c to home today updated at bedside 02/20 Notes For Next Care Provider Medication Changes From Visit flomax prn tramadol prn oxybutyin cipro x3 days BID Admission HPI Per Admitting Provider The patient is a 64-year-old male with a past medical history including severe DILCIA, lumbar degenerative disc disease, depression, hyperlipidemia, prediabetes, PLMD, polyneuropathy, anaplasmosis, Lyme disease, and chronic back pain. He pr esents to the emergency department with right-sided back pain, that initially thought was related to his chronic pain, however, this rapidly worsened, accompanied by nausea and vomiting, and ultimately had to come to the ED for assessment. Discharge Exam General: NAD, VS as above Resp: normal respiratory effort, lungs clear to auscultation CV: RRR, no murmur, Abd: normal bowel sounds, non tender, nsoft back: mild right CVA tenderness Extremities: Moves all extremities, no edema Neuro: A&O x3, Skin: intact, no lesions noted Discharge Plan Discharge Items Patient Disposition: Home - Self-Care Reason For Visit: R UPJ 1.5CM OBST STONE, SEVERE R HYDROURETER, BPH Discharge Diagnosis: Kidney stone Activity: Resume your previous activity Weightbearing: Full weightbearing Non-emergency contact: Primary Care Provider and Urologist Call non-emergency contact if: you have any medication questions and your symptoms worsen Follow-up/Referrals: Jax Ruiz MD [Physician] - (f/u for stone treatment ) Kirk Coles DO [Primary Care Provider] - (follow up 7-10 days ) Diet: Regular Addtl Attending Provider Instructions: Mr. Massey, You were hospitalized after having a kidney stone causing hydronephrosis (back up of fluid into the kidney). You underwent stent placement to help drain the kidney. The kidney stone remains in place, and will have to follow up with urology for stone treatment. The urology office should contact you on Friday, if you do not hear from them, please contact the number above. New medications: - Flomax - take this daily while stent is in place, this helps to dilate the ureter and allow for easier urination with stent in place - oxybutynin - use as needed for stent pain/spasm - tramadol - as needed for pain, you can also use tylenol. - ciprofloxacin - antibiotic, start this 02/21 Activity: You can do normal everyday activities as your body allows. Take rest breaks if you feel tired. Do not overexert. Stop activity if you have pain, shortness of breath or feel dizzy. Follow-up appointments: Make an appointment with your primary care physician within one week of discharge. A copy of this summary will be sent to them. Every time you see your primary care physician, or any other doctor, bring your medication list, and a list of questions. CONTACT YOUR PRIMARY CARE PROVIDER if you experience any of the following: Shortness of breath or difficulty breathing Fevers or chills Feeling tired with normal activity or experiencing dizziness or fainting Difficulty following your treatment plan, or difficulty taking medications Contact urology - uncontrolled stent pain - inability to urinate CALL 911 OR GO TO THE EMERGENCY DEPARTMENT if you experience any of the following: Severe abdominal pain or nausea/vomiting Severe chest pain, or chest pain that radiates (moves) to your jaw or arm Sudden, severe shortness of breath or difficulty breathing Thank you for allowing us to participate in your care. Radha Sousa PA-C Pending Studies at Discharge: Yes (urine culture ) Stand-Alone Forms: My MyWants, Smoking Cessation Medications and DC Order Prescriptions: New tamsulosin 0.4 mg Capsule 0.4 mg PO HS 14 Days Qty: 14 0RF tramadol 50 mg tablet 50 mg PO Q8H PRN (Reason: pain) Qty: 10 0RF oxybutynin chloride 5 mg tablet 5 mg PO BID PRN (Reason: bladder spasms or stent pain) Qty: 14 0RF ciprofloxacin HCl 500 mg tablet 500 mg PO BID Qty: 6 0RF Continued citalopram 20 mg tablet 20 mg PO DAILY Qty: 90 3RF Zepbound 2.5 mg/0.5 mL pen injector 2.5 mg subcut Q7D 90 Days Qty: 6.5 1RF ropinirole 1 mg tablet See Rx Instructions .ROUTE .COMPLEX Qty: 270 3RF Dose Instruction: TAKE 2 TO 3 TABLETS AT BEDTIME Rx Instructions: TAKE 2 TO 3 TABLETS AT BEDTIME atorvastatin 20 mg tablet See Rx Instructions .ROUTE .COMPLEX Qty: 90 3RF Dose Instruction: TAKE 1 TABLET AT BEDTIME Rx Instructions: TAKE 1 TABLET AT BEDTIME Zepbound 5 mg/0.5 mL pen injector 5 mg subcut Q7D 90 Days Qty: 6.5 2RF ferrous sulfate 325 mg (65 mg iron) tablet 325 mg PO DAILY meloxicam [Mobic] 15 mg tablet 15 mg PO DAILY Qty: 30 3RF Hold Instructions: Resume on 08/29/23. Discharge Orders: Discharge Order (Routine); Ordered 02/21/24 Ordered By: Radha Pearl/Other Patient Handouts: Having a Ureteral Stent Admission Data Admit Date/Time: 02/21/24 05:12 Attending Provider: Ovidio Murphy Admit Provider: José Luis Lang Primary Care Provider: Kirk Coles Other Providers: José Luis Lang; Jax Ruiz Hospital Stay Data Consultations 02/21/24 04:37 ED Decision to Admit Stat 02/21/24 04:52 Consult Urology Stat Procedures Performed Operation Date: 02/21/24 10:30 Actual Procedures p Cystoscopy, Right ureteral stent placement(Right) - Jax Ruiz MD Diagnostic Imagining Performed Abdomen/Pelvis CT 02/21/24 01:18 HISTORY: Right flank pain and back pain. Nausea and vomiting. TECHNIQUE: CT of the abdomen pelvis without IV contrast. Images are presented in axial, sagittal, coronal reformats. COMPARISON: None. FINDINGS: Lung Bases/Inferior Mediastinum: Unremarkable Liver: Unremarkable Gallbladder: Unremarkable Spleen: Unremarkable Adrenals: Unremarkable Pancreas: Unremarkable Kidneys: Severe right hydronephrosis. 1.5 cm stone obstructs the right ureteropelvic junction. Left kidney is unremarkable. Stomach/Bowel: Normal appendix. No bowel obstruction. Lymph nodes: Unremarkable Vasculature: Mild atherosclerotic vascular disease. Tortuous abdominal aorta. No abdominal aortic aneurysm. Pelvis: Nonspecific circumferential bladder wall thickening. Prostatomegaly with the prostate measuring 5.7 cm in diameter. No free pelvic fluid. Soft Tissues: Tiny fat-containing umbilical hernia. Small fat-containing left inguinal hernia. Bones: Moderate degenerative changes of the spine. Mild degenerative changes of the hips and pelvis. Lumbar dextroscoliosis. Multilevel central canal and bilateral neural foraminal stenosis. IMPRESSION: 1. Acute right obstructive uropathy. Severe right hydronephrosis with a 1.5 cm stone obstructing the right ureteropelvic junction. 2. Prostatomegaly. Nonspecific circumferential bladder wall thickening may be the result of chronic bladder outlet obstruction. Recommend correlation with urinalysis. 3. Numerous additional chronic and/or incidental findings as above. Electronically signed by Leonard Quezada 02-21-2024 02:[address] 02/21/24 01:18 EXAM: CT lumbar spine wo con CLINICAL HISTORY: Right flank/back pain, nausea, vomiting. TECHNIQUE: A CT non-contrast scan of the lumbar spine was performed. Axial images were obtained with reformatted coronal and sagittal images and submitted for interpretation. One of the following dose reduction techniques was utilized for this exam: Automated exposure control, adjustment of the mA and/or kV according to patient size, and use of iterative reconstruction. COMPARISON: X-ray of lumbar spine, dated 04/28/2017 FINDINGS: Vertebrae: Lumbar spondylosis with marginal osteophytes. Normal alignment of the lumbar vertebrae. No fractures, lytic or sclerotic lesions. Normal bone density without evidence of osteopenia or osteoporosis. Straightening of lumbar lordosis suggestive of muscle spasm. Intervertebral Discs: Narrowing of intervertebral disc spaces. Multiple levels of intervertebral vacuum phenomena. Posterior disc osteophyte complexes seen at all levels with associated spinal canal and neural foraminal stenosis would recommend an MRI lumbar spine for further evaluation if clinically warranted. Spinal Canal and Neural Foramina: The spinal canal is of normal caliber with no evidence of spinal stenosis. Neural foramina are patent bilaterally at all levels. No evidence of nerve root compression. Facet Joints: Osteoarthritis of facet joints Soft Tissues: Normal appearance of the paraspinal soft tissues. No abnormal masses, fluid collections, or signs of inflammation. IMPRESSION: 1. Severe lumbar degenerative changes and multiple levels of posterior disc osteophyte complex causing spinal canal and neural foraminal stenosis would recommend MRI lumbar spine for further evaluation if clinically warranted. Interval progression. 2. Straightening of lumbar lordosis suggestive of muscle spasm. Electronically signed by Duke Nicholson 02-21-2024 06:06 AM Pending Results Patient Have Any Pending Studies at Discharge: Yes (urine culture ) Discharge Instructions Given to Patient (Per Discharging Provider) Mr. Massey, You were hospitalized after having a kidney stone causing hydronephrosis (back up of fluid into the kidney). You underwent stent placement to help drain the kidney. The kidney stone remains in place, and will have to follow up with urology for stone treatment. The urology office should contact you on Friday, if you do not hear from them, please contact the number above. New medications: - Flomax - take this daily while stent is in place, this helps to dilate the ureter and allow for easier urination with stent in place - oxybutynin - use as needed for stent pain/spasm - tramadol - as needed for pain, you can also use tylenol. - ciprofloxacin - antibiotic, start this 02/21 Activity: You can do normal everyday activities as your body allows. Take rest breaks if you feel tired. Do not overexert. Stop activity if you have pain, shortness of breath or feel dizzy. Follow-up appointments: Make an appointment with your primary care physician within one week of discharge. A copy of this summary will be sent to them. Every time you see your primary care physician, or any other doctor, bring your medication list, and a list of questions. CONTACT YOUR PRIMARY CARE PROVIDER if you experience any of the following: Shortness of breath or difficulty breathing Fevers or chills Feeling tired with normal activity or experiencing dizziness or fainting Difficulty following your treatment plan, or difficulty taking medications Contact urology - uncontrolled stent pain - inability to urinate CALL 911 OR GO TO THE EMERGENCY DEPARTMENT if you experience any of the following: Severe abdominal pain or nausea/vomiting Severe chest pain, or chest pain that radiates (moves) to your jaw or arm Sudden, severe shortness of breath or difficulty breathing Thank you for allowing us to participate in your care. Radha Sousa PA-C Total Time Total Time Spent Total Time Spent (In Minutes): Time spent day of discharge 40 minutes including direct patient care, medication reconciliation, documentation, review of labs and images, and coordination of care. Coding Level of Care Code None Diagnoses Acute unilateral obstructive uropathy N13.9 Calculus of proximal right ureter N20.1 BPH loc w urin obs/LUTS N40.1 Severe obstructive sleep apnea G47.33 Depression F32.9 Weight loss due to medication R63.4; T50.905A
[2024-02-21] MEDS ORDERED: rOPINIRole HCL 2 MG TABLET PO SCH (21:00)
[2024-02-21] MEDS ORDERED: TAMSULOSIN HCL 0.4 MG CAP PO SCH (21:00)
--- NOTE | 2024-02-23 07:00 | Fluoroscopy Report ---
FL retrograde includes kub CLINICAL HISTORY: CYSTO COMPARISON STUDY: CT of the abdomen and pelvis February 21, 2024 at 1:29 AM. FLUOROSCOPY TIME: 5 seconds. Ka,r: 1.73 mGy FLUOROSCOPIC IMAGES: 1 FINDINGS: Fluoroscopy was provided during right retrograde exam with right ureteral stent insertion. Proximal aspect of the stent is within the right collecting system. Right renal pelvis/UPJ stone is n oted. IMPRESSION: Fluoroscopy provided during right retrograde exam with right ureteral stent insertion. ACT 112: Negative or not required by law. Electronically signed by: Josef Hernandez M.D. 02/23/2024 6:58 AM
--- NOTE | 2024-02-24 16:15 | Electrocardiogram Report ---
Test Reason : Blood Pressure : */* mmHG Vent. Rate : 69 BPM Atrial Rate : 69 BPM P-R Int : 166 ms QRS Dur : 74 ms QT Int : 408 ms P-R-T Axes : 52 56 64 degrees QTcB Int : 437 ms Normal sinus rhythm Normal ECG When compared with ECG of 13-Aug-2023 16:28, Vent. rate has decreased by 48 bpm Confirmed by Jax Ontiveros ([id number]) on 02/24/2024 4:14:52 PM Referred By: REFERRED SELF Confirmed By: Jax Ontiveros
== END 2024-02-21 15:22 | disposition home or self-care (01) | DRG 660 ==
LOC: ED 00:34 → INTOOBSV 05:12 → 3W 05:12 → SUATTDRO 05:12 → 3W 05:35